=== PATIENT | female | born 1935 | race Caucasian/White ===

== ENCOUNTER → 2018-05-19 15:59 | Outpatient (REF) | payer MEDICARE, OTHER, SELFPAY | LOC: NCHCN 15:59 | PROVIDERS: PCP Internal Medicine; Visit Provider Nurse Practitioner Family | DX: R53.83 Other fatigue (principal); N94.89 Other specified conditions associated with female genital organs and menstrual cycle | CPT/HCPCS: 87077; 87086; 87186 ==

== ENCOUNTER 2018-06-16 11:51 | Outpatient (REF) | payer MEDICARE, SELFPAY ==
[2018-06-16 21:18] LABS: Iron 99 ug/dL (50-175); Total Iron Binding Capacity 283 ug/dL (250-450); Transferrin Sat 35 % (15-50)
[2018-06-16 21:34] LABS: ALT 34 U/L (12-78); AST 31 U/L (15-37); Albumin 3.8 g/dL (3.4-5.0); Alkaline Phosphatase 67 U/L (46-116); BUN 21 mg/dL (7-18); Bilirubin, Total 0.5 mg/dL (0.2-1.0); CREATININE 0.91 mg/dL (0.55-1.02); Calcium 8.6 mg/dL (8.5-10.1); Chloride 102 mmol/L (98-107); Estimated GFR 59.33 (mL/min/1.73m2); Ferritin 118 ng/mL (8-388); Glucose 104 mg/dL (70-100); Potassium 4.5 mmol/L (3.5-5.1); Sodium 138 mmol/L (136-145); Total Protein 7.3 g/dL (6.4-8.2)
[2018-06-16 21:48] LABS: Abs Immature Grans 0.01 k/cumm (0.0-0.09); Absolute Basophil Count 0.04 k/cumm (0.0-0.2); Absolute Eosinophil Count 0.15 k/cumm (0.0-0.7); Absolute Lymphocyte Count 1.75 k/cumm (1.2-3.4); Absolute Monocyte Count 0.96 k/cumm (0.11-0.7); Absolute Neutrophil Count 5.68 k/cumm (1.2-6.7); Basophils % 0.5; Eosinophils % 1.7; HCT 39.5 % (36.0-46.0); HGB 12.9 g/dL (12.0-15.5); Immature Grans % 0.1; Lymphocytes % 20.4; Mean Corp. HGB Concentration 32.7 g/dL (32.0-36.0); Monocytes % 11.2; Neutrophils % 66.1; Platelet Count 280 x1000/uL (130-400); RBC 4.16 m/cumm (4.00-5.20); RBC Distribution Width 13.5 % (11.7-14.6); White Blood Cell Count 8.59 k/cumm (4.4-10.8)
[2018-06-16 22:03] LABS: C-Reactive Protein 0.28 mg/dL (0.0-0.3)
[2018-06-16 22:51] LABS: ESR 27 MM/HR (0-30)
[2018-06-20 09:40] LABS: Rheumatoid Factor 9 IU/mL (<12.5)
[2018-06-20 09:48] LABS: Cyclic Citrullinated Peptide <2.5 U/mL (<5.0)
[2018-06-20 13:04] LABS: Lyme Ab w Rflx to Lyme Confirm Negative
[2018-06-21 11:50] LABS: ANA Interpretation Positive (NEGAT); ANA Titer Pattern SEE COMMENTS
== END 2018-06-16 12:11 ==
LOC: NCHCN 11:51
PROVIDERS: PCP Internal Medicine; Visit Provider Nurse Practitioner
DX: M25.50 Pain in unspecified joint (principal); R53.83 Other fatigue
CPT/HCPCS: 80053; 85652; 86200; 82728; 83540; 83550; 85025; 86038; 86140; 86431; 86618

== ENCOUNTER 2018-06-30 17:37 | Outpatient (REF) | payer MEDICARE, SELFPAY ==
[2018-06-30 21:01] LABS: TSH (W/Ref FT4) 0.15 uIU/mL (0.358-3.74)
[2018-06-30 21:40] LABS: FREE T4 1.25 ng/dL (0.76-1.46)
== END 2018-06-30 17:57 ==
LOC: NCHCN 17:37
PROVIDERS: PCP Internal Medicine; Visit Provider Nurse Practitioner Family
DX: E03.9 Hypothyroidism, unspecified (principal)
CPT/HCPCS: 84439; 84443

== ENCOUNTER 2018-07-28 00:35 | Outpatient (CLI) | payer MEDICARE, OTHER, SELFPAY ==
--- NOTE | 2018-07-28 14:30 | DI.MAMMO_ITS ---
SYMPTOMS/DIAGNOSIS: SCREENING, Z12.31 MAMMOGRAM: Mammograms were interpreted according to the usual protocol including computer analysis with CAD system, tomosynthesis and C view imaging. The breasts are of moderate density with fairly symmetrical distribution of fibroglandular tissue. No dominant mass or clumped microcalcification is identified in either breast. The current examination is compared with previous examinations including July 2017 and note is again made of well circumscribed retroareolar nodule of the right breast unchanged from previous studies. CONCLUSION: No specific evidence of malignancy at this time. Routine screening examinations are suggested at yearly intervals in this age group according to the ACS/ACR guidelines. Category I. Breast density Category B. MQSA ASSESSMENT OF FINDINGS: Negative. Category 1. Patient will receive a letter notifying them of these results. BI-RADS category B. There are scattered areas of fibroglandular density.
== END 2018-07-28 00:55 ==
PROVIDERS: PCP Internal Medicine; Visit Provider Nurse Practitioner Family
DX: Z12.31 Encounter for screening mammogram for malignant neoplasm of breast (principal)
CPT/HCPCS: 77063; 77067

== ENCOUNTER 2019-04-04 10:57 | Outpatient (REF) | payer MEDICARE, OTHER, SELFPAY | END 2019-04-04 11:17 | LOC: NCHCN 10:57 | PROVIDERS: PCP Internal Medicine; Visit Provider Nurse Practitioner Family | DX: R30.0 Dysuria (principal); N39.46 Mixed incontinence | CPT/HCPCS: 87077; 87086; 87186 ==

== ENCOUNTER 2019-05-05 11:08 | Outpatient (REF) | payer MEDICARE, OTHER, SELFPAY ==
[2019-05-05 12:12] LABS: Bilirubin Negative (Negative); Blood Trace-lysed (Negative); Clarity Clear (Clear); Glucose Negative (Negative); Ketones Trace mg/dL (Negative); Leukocyte Esterase Negative (Negative); Nitrite Negative (Negative); Specific Gravity 1.015 (1.005-1.025); Urobilinogen 0.2 EU/dL (Up TO 0.2); pH 5.5 (5-8)
[2019-05-05 12:26] LABS: Bacteria Few HPF (Negative); C & S Indicated? C&S Done As Ordered; Casts Negative LPF (Negative); Crystals Few Calcium Oxalate HPF (Negative); Epithelial Cells Moderate HPF (Negative); Mucus Moderate (Negative); RBC 0-2 (0-2)
== END 2019-05-05 11:28 ==
LOC: NCHCN 11:08
PROVIDERS: PCP Internal Medicine; Visit Provider Nurse Practitioner Family
DX: R31.9 Hematuria, unspecified (principal)
CPT/HCPCS: 81003; 81015; 87086

== ENCOUNTER 2019-05-23 11:51 | Emergency (ER) | payer MEDICARE, OTHER, SELFPAY ==
[2019-05-23] VITALS (22 sets, daily range): BP systolic 167–183; BP diastolic 63–139; PULSE 66–80; RESP 13–23; TEMP 36.7; O2SAT 94–98
--- NOTE | 2019-05-23 12:56 | DI.CT_ITS ---
SYMPTOMS/DIAGNOSIS: WEIGHT LOSS, CONSTIPATION, ? ACUTE PROCESS/MASS ABDOMINAL AND PELVIC CT: CT examination of the abdomen and pelvis was performed with a bolus infusion of 80 cc of Omnipaque 350. Images obtained through the lung bases are unremarkable. The liver, spleen and pancreas appear normal. Gallbladder has been surgically removed. No biliary dilatation seen. Abdominal aorta is of normal diameter and no major vascular abnormality is seen. No significant abdominal wall hernia seen. No significant abdominal or pelvic adenopathy. Adrenals and kidneys are unremarkable. No urinary tract calcification or obstruction. No evidence of bowel obstruction. Question mild wall thickening of portions of the colon, particularly the rectosigmoid; colitis not excluded, please correlate clinically. CONCLUSION: No evidence of acute intraabdominal process. Colitis not excluded, please correlate clinically.
[2019-05-23 13:00] LABS: Abs Immature Grans 0.04 k/cumm (0.0-0.09); Absolute Lymphocyte Count 1.15 k/cumm (1.2-3.4); Absolute Monocyte Count 0.78 k/cumm (0.11-0.7); Absolute Neutrophil Count 11.04 k/cumm (1.2-6.7); Basophils % 0.2; HCT 41.8 % (36.0-46.0); HGB 14.4 g/dL (12.0-15.5); Immature Grans % 0.3; Lymphocytes % 8.8; Mean Corp. HGB Concentration 34.4 g/dL (32.0-36.0); Mean Corpuscular Hemoglobin 31.5 pg (27.0-33.0); Mean Corpuscular Volume 91.5 fL (80-95); Mean Platelet Volume 8.9 fL (8.0-11.0); Neutrophils % 84.7; Platelet Count 384 x1000/uL (130-400); RBC 4.57 m/cumm (4.00-5.20); RBC Distribution Width 12.5 % (11.7-14.6); White Blood Cell Count 13.03 k/cumm (4.4-10.8)
[2019-05-23] MEDS: Normal Saline 250 ML IV (13:00)
[2019-05-23 13:04] LABS: Bilirubin Negative (Negative); Blood Small (Negative); Clarity Clear (Clear); Glucose Negative (Negative); Ketones 80 mg/dL (Negative); Leukocyte Esterase Negative (Negative); Nitrite Negative (Negative); Specific Gravity 1.025 (1.005-1.025); Urobilinogen 0.2 EU/dL (Up TO 0.2)
[2019-05-23 13:05] LABS: Absolute Basophil Count 0.03 k/cumm (0.0-0.2)
[2019-05-23 13:11] LABS: Prothrombin Time 9.5 sec (9.3-11.0)
[2019-05-23 13:12] LABS: Bacteria Rare HPF (Negative); C & S Indicated? No; Casts Negative LPF (Negative); Crystals Negative HPF (Negative); Epithelial Cells Few HPF (Negative); Mucus Trace (Negative); WBC 0-2 HPF (0-5)
--- NOTE | 2019-05-23 13:22 | DI.RAD_ITS ---
SYMPTOM/DIAGNOSIS: SOB PA AND LATERAL CHEST: The heart is not enlarged. There is a questionable nodular radiodensity projected over the left heart border which may represent nipple shadow. Repeat PA chest with nipple markers requested. There are changes of COPD and pulmonary scarring. No evidence of focal consolidation or pleural effusion. CONCLUSION: No evidence of acute process. Question left nipple nodule versus intrapulmonary nodule, repeat PA chest with nipple markers is requested.
[2019-05-23 13:28] LABS: ALT 25 U/L (12-78); AST 18 U/L (15-37); Albumin 4.4 g/dL (3.4-5.0); Alkaline Phosphatase 66 U/L (46-116); Anion Gap 10.9 mmol/L (3-11); BUN 18 mg/dL (7-18); Bilirubin, Direct 0.15 mg/dL (0.00-0.20); CO2 28.1 mmol/L (21.0-32.0); CREATININE 0.72 mg/dL (0.55-1.02); Calcium 9.2 mg/dL (8.5-10.1); Chloride 91 mmol/L (98-107); Glucose 126 mg/dL (70-100); Magnesium 2.1 mg/dL (1.8-2.4); NT-proBNP 510 pg/mL; Potassium 4.2 mmol/L (3.5-5.1); Sodium 130 mmol/L (136-145); Total Protein 8.6 g/dL (6.4-8.2)
--- NOTE | 2019-05-23 13:30 | DI.RAD_ITS ---
SYMPTOM/DIAGNOSIS: DROPPED BOTTLE ON FOOT, ? FX RIGHT ANKLE AND RIGHT FOOT: Three views of the ankle and three views of the foot were obtained. The ankle mortise is well maintained. There are mild degenerative changes of the joints of the foot and ankle. No acute fracture is seen.
[2019-05-23 13:33] LABS: Troponin I < 0.05 ng/mL (0.00-0.06)
--- NOTE | 2019-05-23 13:52 | DI.RAD_ITS ---
SYMPTOMS/DIAGNOSIS: LEFT LOWER LOBE DENSITY, PA VIEW WITH NIPPLE MARKERS PER DR. ALEXANDER'S REQUEST REPEAT PA CHEST WITH NIPPLE MARKERS: Repeat PA chest with nipple markers shows nipple marker corresponding to the area of nodularity identified on the initial PA chest film. No intrapulmonary nodules seen.
[2019-05-23 14:04] LABS: FREE T4 1.25 ng/dL (0.76-1.46)
--- NOTE | 2019-05-23 15:04 | W.ED.GENAD ---
Discharge Plan Disposition Patient Disposition: HOME Condition: Improving Discharge Details Chief Complaint: GenMedical Clinical Impression: Atypical chest pain, Chronic constipation, Colitis, Nausea, Dehydration Primary Care Provider: Ruddy He ED Provider: Wanda Radford Home Meds and New Rx's Prescriptions: New ondansetron HCl [Zofran] 4 mg tablet 4 mg PO Q6H PRN (Reason: nausea and vomiting) Qty: 7 RF: 0 Continued atorvastatin [Lipitor] 40 MG tablet 40 mg PO DAILY RF: 0 paroxetine HCl [Paxil] 20 MG tablet 20 mg PO DAILY RF: 0 esomeprazole magnesium [Nexium] 40 MG capsule,delayed release(DR/EC) 40 mg PO DAILY RF: 0 levothyroxine 112 MCG tablet 112 mcg PO DAILY RF: 0 Discharge Instructions Instructions: Chest Pain (ED), Constipation (ED), Dehydration (ED), Acute Nausea and Vomiting (ED) Additional Instructions: Drink plenty of fluids and get plenty of rest. Take the Zofran as needed and directed for any nausea or vomiting. Call your primary care doctor to schedule a follow-up appointment for reevaluation within the next week. Return immediately to the emergency department if you develop any worsening or new concerning symptoms. Discharge Data Discharge Date/Time-TO BE ENTERED AT DEPARTURE: 05/23/19 18:28 Discharge Physician: Wanda Radford Medical Decision Making 83-year-old female with a history of hypothyroidism, high cholesterol, depression, irritable bowel syndrome who presents after referred from the PCP office for multiple complaints including chest pain, shortness of breath, nausea, decreased appetite, constipation for the past few days. EKG notes a rate of 73, sinus with no acute ST ischemic changes. Abdomen is soft and nontender. She appears nontoxic. Differential diagnosis includes ACS, pneumonia, dehydration, electrolyte abnormality, acute abdominal abnormality. IV, fluids, labs ordered on arrival in addition to chest x-ray and CT abdomen and pelvis. Labs ordered on arrival which noted with blood cell count of 13, sodium 130, troponin negative. BNP 510. TSH 0.3 with normal free T4. Urinalysis notes ketones and small blood but negative for infection. Chest x-ray negative. CT abdomen and pelvis thickening of the recto sigmoid region of the bowel, likely consistent with colitis. Patient has a history of chronic constipation so suspect this is likely due to this. 1630 --Patient states she feels better with IV fluids. She is requesting additional IV fluids and still complaining of minimal nausea. Will give a dose of zofranl, 500 cc saline bolus and check a second troponin. She denies any current symptoms at this time. 1800 --patient able to eat and drink and denies any vomiting and states she feels good to go home. 2nd trop negative. She denies any chest pain at this time. We will send home with a prescription for Zofran. Discussed that her symptoms of nausea, pain and chronic constipation can be associated with her colitis at this time, but also chronically with her IBS. She is advised to follow-up with her primary care doctor and GI for reevaluation. She is encouraged to return here if she has any worsening or new concerning symptoms. Imaging Data Radiologic Study: Radiologist's impression: PA AND LATERAL CHEST: The heart is not enlarged. There is a questionable nodular radiodensity projected over the left heart border which may represent nipple shadow. Repeat PA chest with nipple markers requested. There are changes of COPD and pulmonary scarring. No evidence of focal consolidation or pleural effusion. CONCLUSION: No evidence of acute process. Question left nipple nodule versus intrapulmonary nodule, repeat PA chest with nipple markers is requested. RIGHT ANKLE AND RIGHT FOOT: Three views of the ankle and three views of the foot were obtained. The ankle mortise is well maintained. There are mild degenerative changes of the joints of the foot and ankle. No acute fracture is seen. ABDOMINAL AND PELVIC CT: CT examination of the abdomen and pelvis was performed with a bolus infusion of 80 cc of Omnipaque 350. Images obtained through the lung bases are unremarkable. The liver, spleen and pancreas appear normal. Gallbladder has been surgically removed. No biliary dilatation seen. Abdominal aorta is of normal diameter and no major vascular abnormality is seen. No significant abdominal wall hernia seen. No significant abdominal or pelvic adenopathy. Adrenals and kidneys are unremarkable. No urinary tract calcification or obstruction. No evidence of bowel obstruction. Question mild wall thickening of portions of the colon, particularly the rectosigmoid; colitis not excluded, please correlate clinically. CONCLUSION: No evidence of acute intraabdominal process. Colitis not excluded, please correlate clinically. Lab Data Lab results reviewed: Yes I reviewed the patient's lab results. ECG Data Attestation: I personally reviewed and interpreted this ECG (s) as follows: Interpretation: Rate of 73, sinus, no acute ST elevation or depression. MN 172. QRS 456. HPI General Mode of arrival: ambulatory. Date/Time Provider Initiated Documentation: 05/23/19 12:55. Limitations to Documentation: no limitations. Information obtained by: patient. HPI Narrative: Patient is a 83-year-old female with a history of GERD, IBS, chronic constipation, hypothyroidism who presents to the ED with multiple complaints. She saw her primary care doctor today for vomiting, fatigue, chest pain, shortness of breath and complaint of her chronic constipation. She states she has been short of breath for 2 days but worse since yesterday. She states she does not specifically have chest pain but states it feels more like tingling. She states she has been taking Rodriguez' milk of magnesia for her chronic constipation for years. Patient lives in [place] in the winter and comes to [place] for the summer. She was seen by Dr. He in the office today and referred to the ER for evaluation including possible lab work and imaging in addition to IV fluids for possible dehydration. Related Data Home Medications Medication Instructions Recorded Confirmed atorvastatin [Lipitor] 40 mg PO DAILY tab-cap 07/09/15 05/23/19 esomeprazole magnesium [Nexium] 40 mg PO DAILY tab-cap 07/09/15 05/23/19 levothyroxine 112 mcg PO DAILY tab-cap 07/09/15 05/23/19 paroxetine HCl [Paxil] 20 mg PO DAILY tab-cap 07/09/15 05/23/19 ondansetron HCl [Zofran] 4 mg PO Q6H PRN #7 tab 05/23/19 Previous Rx's Medication Instructions Recorded ondansetron HCl [Zofran] 4 mg PO Q6H PRN #7 tab 05/23/19 Allergies Allergy/AdvReac Type Severity Reaction Status Date / Time metronidazole [From Flagyl] Allergy Intermediate Rash Unverified 05/23/19 12:22 ciprofloxacin [From Cipro] AdvReac Intermediate Muscle/Tendon Unverified 05/23/19 12:22 aches ciprofloxacin HCl AdvReac Intermediate Muscle/Tendon Unverified 05/23/19 12:22 [From Cipro] aches General Stated Complaint: GenMedical ZULEYMA: 3 Review of Systems Review of Systems All systems reviewed & are unremarkable except as noted in HPI and below Constitutional Reports as per HPI, Denies chills, Reports fatigue and Denies fever(s) Eyes Denies blurry vision ENT Denies dizziness, Denies sore throat and Denies throat swelling Cardiovascular Reports chest pain and Reports dyspnea Respiratory Denies cough and Reports dyspnea Gastrointestinal Denies abdominal pain, Denies diarrhea and Reports vomiting Genitourinary Denies hematuria and Denies dysuria Musculoskeletal Denies back pain and Denies numbness Integumentary/Breasts Denies lesions and Denies rash Neurologic Denies dizziness, Denies focal weakness and Denies numbness Endocrine Reports fatigue Allergic/Immunologic Denies throat swelling [facility] Medical History (Updated 05/23/19 @ 20:39 by Wanda Radford DO) Cholecystectomy planned (Acute) Chronic constipation (Acute) Depression (Chronic) Fibromyalgia (Acute) GERD (gastroesophageal reflux disease) (Chronic) History of Alba's esophagus (Acute) Hypothyroidism (Chronic) IBS (irritable bowel syndrome) (Chronic) Osteoarthritis (Chronic) Social History Smoking/Tobacco Use Status: Former Tobacco Use Alcohol Intake: never Drug use: Never Substance use type: does not use Do you feel safe at home: Yes Exam Const General: cooperative, healthy appearing and no acute distress HENMT Head: normal to inspection Face and sinus: normal facial exam Eyes General: appearance normal, both eyes and all related structures Pupils: PERRL EOM: EOM intact bilaterally Neck Neck: normal visual inspection and No submandibular swelling Lymphatic: no lymphadenopathy noted Chest Chest: normal inspection of the chest and no tenderness Resp Effort & Inspection: normal respiratory effort and able to speak in complete sentences Auscultation: clear to auscultation bilaterally Cardio Rate: regular rate Rhythm: regular rhythm GI Inspection: normal to inspection Palpation: soft, not firm, not rigid and nontender Auscultation: normal bowel sounds Rectal Exam - female: visual inspection normal Skin General skin exam: no rashes or lesions noted Neuro General: alert, awake and oriented x3 Cognition: normal cognition Speech: speech normal Motor: muscle tone normal throughout Sensory Exam: no sensory deficits noted Extrem General: normal to inspection, full ROM, normal capillary refill, no calf tenderness bilaterally and no edema Psych Appearance: grossly normal Mental Status: mental status grossly normal Speech and Movement: speech and movement normal Affect: normal affect Course Vital Signs Temperature 98.1 F 05/23/19 12:18 Pulse 80 05/23/19 12:18 Respiratory Rate 16 05/23/19 12:18 Blood Pressure 170/85 H 05/23/19 12:18 Pulse Oximetry 98 05/23/19 12:18 Temperature 98.1 F 05/23/19 12:18 Temperature Source Skin 05/23/19 12:18 Pulse 80 05/23/19 12:18 Respiratory Rate 16 05/23/19 12:55 Respiratory Effort Non-Labored 05/23/19 12:55 Respiratory Depth Normal 05/23/19 12:55 Respiratory Pattern Normal 05/23/19 12:55 Blood Pressure 170/85 H 05/23/19 12:18 Pulse Oximetry 98 05/23/19 12:18 Oxygen Delivery Method Room Air 05/23/19 12:18 Oxygen Flow Rate 0 05/23/19 12:18 Pain Level 4 05/23/19 12:18 Comment 05/23/19 12:18 Lab/Test Results Lab/Test Results: Laboratory Tests Range/Units 05/23/19 05/23/19 05/23/19 01:25 12:50 12:50 WBC (4.4-10.8) k/cumm 13.03 H RBC (4.00-5.20) m/cumm 4.57 Hgb (12.0-15.5) g/dL 14.4 Hct (36.0-46.0) % 41.8 MCV (80-95) fL 91.5 MCH (27.0-33.0) pg 31.5 MCHC (32.0-36.0) g/dL 34.4 RDW (11.7-14.6) % 12.5 Plt Count (130-400) x1000/uL 384 MPV (8.0-11.0) fL 8.9 Immature Gran % 0.3 Neutrophils % 84.7 Lymphocytes % 8.8 Monocytes % 6.0 Eosinophils % 0.0 Basophils % 0.2 Absolute Neutrophils (1.2-6.7) k/cumm 11.04 H Absolute Lymphocytes (1.2-3.4) k/cumm 1.15 L Absolute Monocytes (0.11-0.7) k/cumm 0.78 H Absolute Eosinophils (0.0-0.7) k/cumm 0.00 Absolute Basophils (0.0-0.2) k/cumm 0.03 PT (9.3-11.0) sec INR (0.9-1.1) Sodium (136-145) mmol/L 130 L Potassium (3.5-5.1) mmol/L 4.2 Chloride (98-107) mmol/L 91 L Carbon Dioxide (21.0-32.0) mmol/L 28.1 Anion Gap (3-11) mmol/L 10.9 BUN (7-18) mg/dL 18 Creatinine (0.55-1.02) mg/dL 0.72 Estimated GFR/1.73 m2 (mL/min/1.73m2) >= 60.00 Glucose (70-100) mg/dL 126 H Calcium (8.5-10.1) mg/dL 9.2 Magnesium (1.8-2.4) mg/dL 2.1 Total Bilirubin (0.2-1.0) mg/dL 1.0 Conjugated Bilirubin (0.00-0.20) mg/dL 0.15 AST (15-37) U/L 18 ALT (12-78) U/L 25 Alkaline Phosphatase (46-116) U/L 66 Troponin I (0.00-0.06) ng/mL < 0.05 NT-Pro-B Natriuret Pep ( - 299) pg/mL 510 H Total Protein (6.4-8.2) g/dL 8.6 H Albumin (3.4-5.0) g/dL 4.4 TSH (0.36-3.74) uIU/mL Free T4 (0.76-1.46) ng/dL Urine Color (Yellow) Yellow Urine Clarity (Clear) Clear Urine pH (5-8) 6.0 Ur Specific [place] (1.005-1.025) 1.025 Urine Protein (Negative) mg/dL 100 H Urine Ketones (Negative) mg/dL 80 H Urine Blood (Negative) Small H Urine Nitrite (Negative) Negative Urine Bilirubin (Negative) Negative Urine Urobilinogen (Up TO 0.2) EU/dL 0.2 Ur Leukocyte Esterase (Negative) Negative Urine RBC (0-2) 5-10 H Urine WBC (0-5) HPF 0-2 Ur Epithelial Cells (Negative) HPF Few Urine Crystals (Negative) HPF Negative Urine Bacteria (Negative) HPF Rare Urine Casts (Negative) LPF Negative Urine Mucus (Negative) Trace Ur Culture Indicated? No Urine Glucose (Negative) mg/dL Negative Range/Units 05/23/19 05/23/19 12:50 12:50 WBC (4.4-10.8) k/cumm RBC (4.00-5.20) m/cumm Hgb (12.0-15.5) g/dL Hct (36.0-46.0) % MCV (80-95) fL MCH (27.0-33.0) pg MCHC (32.0-36.0) g/dL RDW (11.7-14.6) % Plt Count (130-400) x1000/uL MPV (8.0-11.0) fL Immature Gran % Neutrophils % Lymphocytes % Monocytes % Eosinophils % Basophils % Absolute Neutrophils (1.2-6.7) k/cumm Absolute Lymphocytes (1.2-3.4) k/cumm Absolute Monocytes (0.11-0.7) k/cumm Absolute Eosinophils (0.0-0.7) k/cumm Absolute Basophils (0.0-0.2) k/cumm PT (9.3-11.0) sec 9.5 INR (0.9-1.1) 1.0 Sodium (136-145) mmol/L Potassium (3.5-5.1) mmol/L Chloride (98-107) mmol/L Carbon Dioxide (21.0-32.0) mmol/L Anion Gap (3-11) mmol/L BUN (7-18) mg/dL Creatinine (0.55-1.02) mg/dL Estimated GFR/1.73 m2 (mL/min/1.73m2) Glucose (70-100) mg/dL Calcium (8.5-10.1) mg/dL Magnesium (1.8-2.4) mg/dL Total Bilirubin (0.2-1.0) mg/dL Conjugated Bilirubin (0.00-0.20) mg/dL AST (15-37) U/L ALT (12-78) U/L Alkaline Phosphatase (46-116) U/L Troponin I (0.00-0.06) ng/mL NT-Pro-B Natriuret Pep ( - 299) pg/mL Total Protein (6.4-8.2) g/dL Albumin (3.4-5.0) g/dL TSH (0.36-3.74) uIU/mL 0.30 L Free T4 (0.76-1.46) ng/dL 1.25 Urine Color (Yellow) Urine Clarity (Clear) Urine pH (5-8) Ur Specific [place] (1.005-1.025) Urine Protein (Negative) mg/dL Urine Ketones (Negative) mg/dL Urine Blood (Negative) Urine Nitrite (Negative) Urine Bilirubin (Negative) Urine Urobilinogen (Up TO 0.2) EU/dL Ur Leukocyte Esterase (Negative) Urine RBC (0-2) Urine WBC (0-5) HPF Ur Epithelial Cells (Negative) HPF Urine Crystals (Negative) HPF Urine Bacteria (Negative) HPF Urine Casts (Negative) LPF Urine Mucus (Negative) Ur Culture Indicated? Urine Glucose (Negative) mg/dL
[2019-05-23] MEDS: Normal Saline 500 ML IV (16:15)
[2019-05-23] MEDS: Ondansetron 4 MG/2 ML VIAL IVP (16:18)
[2019-05-23 16:59] LABS: Troponin I < 0.05 ng/mL (0.00-0.06)
[2019-05-23 20:38] LABS: Lipase 87 U/L (73-393)
== END 2019-05-23 18:28 | disposition home or self-care (01) ==
PROVIDERS: Emergency Provider Physician Assistant; PCP Internal Medicine
DX: R07.89 Other chest pain (principal); R11.0 Nausea; K52.9 Noninfective gastroenteritis and colitis, unspecified; E86.0 Dehydration; K59.09 Other constipation
CPT/HCPCS: 36415; 80053; 80076; 83690; 93005; 96361; 96374; 99285; 71045; 71046; 73610; 73630; 74177; 81003; 81015; 83735; 83880; 84439; 84443; 84484; 85025; 85610; 93010; J2405

== ENCOUNTER → 2019-05-25 12:58 | Outpatient (BNVA) | payer MEDICARE, OTHER, SELFPAY | PROVIDERS: PCP Internal Medicine; Visit Provider Nurse Practitioner Gerontology | DX: N39.46 Mixed incontinence (principal); R31.29 Other microscopic hematuria; Z87.440 Personal history of urinary (tract) infections | CPT/HCPCS: 51798; 99204; 99215 ==

== ENCOUNTER 2019-06-02 15:28 | Outpatient (REF) | payer MEDICARE, OTHER, SELFPAY | END 2019-06-02 15:48 | LOC: NCHCN 15:28 | PROVIDERS: PCP Internal Medicine; Visit Provider Nurse Practitioner Family | DX: R73.03 Prediabetes (principal); E03.9 Hypothyroidism, unspecified; R11.2 Nausea with vomiting, unspecified | CPT/HCPCS: 83036 ==

== ENCOUNTER 2019-06-05 09:56 | Emergency (ER) | payer MEDICARE, OTHER, SELFPAY ==
[2019-06-05] VITALS (46 sets, daily range): BP systolic 124–155; BP diastolic 46–133; PULSE 80–102; RESP 14–31; TEMP 37.4–37.7; O2SAT 91–96
--- NOTE | 2019-06-05 10:32 | ED.GENADUL_ITS ---
Discharge Plan Disposition Patient Disposition: HOME Condition: Stable Discharge Details Chief Complaint: Nausea/Vomit/Diar Clinical Impression: Vomiting, Abdominal pain, Chronic constipation Primary Care Provider: Ruddy He ED Provider: Erica Cantrell Home Meds and New Rx's Prescriptions: Continued acetaminophen [Tylenol Extra Strength] 500 mg tablet 1,000 mg PO TID PRNRF: 0 Myrbetriq 25 mg tablet extended release 24 hr 25 mg PO DAILY Qty: 28 RF: 0 atorvastatin [Lipitor] 40 MG tablet 40 mg PO DAILY RF: 0 paroxetine HCl [Paxil] 20 MG tablet 20 mg PO DAILY RF: 0 esomeprazole magnesium [Nexium] 40 MG capsule,delayed release(DR/EC) 40 mg PO DAILY RF: 0 levothyroxine 112 MCG tablet 100 mcg PO DAILY RF: 0 ondansetron HCl [Zofran] 4 mg tablet 4 mg PO Q6H PRN (Reason: nausea and vomiting) Qty: 7 RF: 0 No Action sennosides [senna] 8.6 mg Tablet 8.6 mg PO QHS RF: 0 Discharge Instructions Instructions: Constipation (ED), Acute Nausea and Vomiting (ED), Abdominal Pain (ED) Additional Instructions: Please return immediately to the emergency department if you develop any new or worsening symptoms, if your symptoms do not improve as expected, or if you become otherwise concerned. It is extremely important that you call as soon as possible to make an appointment to be seen in follow-up for this visit by you primary care doctor, and also by your network diagnostic support specialist. You may continue to take Zofran 3 times a day for nausea as prescribed. Please continue to drink plenty of fluids. Referrals: Ruddy He MD [Primary Care Provider] - Discharge Data Discharge Date/Time-TO BE ENTERED AT DEPARTURE: 06/05/19 15:15 Medical Decision Making Erika Ferreira is an 83-year-old woman with history of GERD, hypothyroidism, irritable bowel syndrome who presented to the emergency department with vomiting and abdominal pain. On exam patient is well and nontoxic appearing. She has mild generalized abdominal tenderness, worse in the left lower quadrant. Concern for colitis, diverticulitis, gastritis, pancreatitis, IBS, doubt bowel obstruction, doubt ACS. Exam/history is not consistent with sepsis, pulmonary embolism, mesenteric ischemia, aortic etiology, acute intracranial etiology. Plan for EKG, screening labs, UA, IV fluid hydration, Zofran, CT abdomen/pelvis. Will monitor and reassess. CT shows possible enteritis, labs reviewed and nondiagnostic. Pt reports feeling very well, symptoms improved. Patient requesting discharged home. She has been taking p.o. in the emergency department without issue. Given that patient feels very well and is eating and drinking, no further intervention indicated at this time. I had a lengthy discussion with the patient regarding return to emergency department precautions/red flags, home care including bowel regimen, and im portance of outpatient follow-up with her PCP and network diagnostic support specialist. Patient verbalized understanding of the plan was amenable. Patient was discharged home with clear plan for outpatient follow-up. All questions were answered. Medical Records Medical records reviewed: Yes I reviewed the patient's medical records. Imaging Data Radiologic Study: Attestation: I personally reviewed and interpreted this imaging study as follows: Radiologist's impression: CT OF THE ABDOMEN AND PELVIS: Comparison is made with [id number]. Images were performed from the lung bases through the ischial tuberosities after IV and without oral contrast. The stomach contains fluid. The ascending colon also shows fluid. There is mild fluid distention of loops of small bowel which could represent enteritis. There is formed stool in the rectosigmoid and a moderate quantity of stool in the rest of the colon. The appendix appears normal. There is no free air, free fluid or abscess. No pneumatosis is seen. The lung bases are clear. The patient is status post cholecystectomy. The liver, spleen, adrenals, pancreas and kidneys are unremarkable. The patient is status post hysterectomy. The bladder is unremarkable. The aorta shows calcification and is normal in diameter. IMPRESSION: Mild small bowel distention with fluid could indicate enteritis. There is no evidence of obstruction. Lab Data Lab results reviewed: Yes I reviewed the patient's lab results. Laboratory Tests Range/Units 06/05/19 06/05/19 06/05/19 10:10 10:10 11:24 WBC (4.4-10.8) k/cumm 5.41 RBC (4.00-5.20) m/cumm 4.31 Hgb (12.0-15.5) g/dL 13.9 Hct (36.0-46.0) % 41.0 MCV (80-95) fL 95.1 H MCH (27.0-33.0) pg 32.3 MCHC (32.0-36.0) g/dL 33.9 RDW (11.7-14.6) % 13.2 Plt Count (130-400) x1000/uL 300 MPV (8.0-11.0) fL 9.0 Immature Gran % 0.0 Neutrophils % 85.7 Lymphocytes % 3.3 Monocytes % 10.4 Eosinophils % 0.4 Basophils % 0.2 Absolute Neutrophils (1.2-6.7) k/cumm 4.64 Absolute Lymphocytes (1.2-3.4) k/cumm 0.18 L Absolute Monocytes (0.11-0.7) k/cumm 0.56 Absolute Eosinophils (0.0-0.7) k/cumm 0.02 Absolute Basophils (0.0-0.2) k/cumm 0.01 Sodium (136-145) mmol/L 141 Potassium (3.5-5.1) mmol/L 3.5 Chloride (98-107) mmol/L 103 Carbon Dioxide (21.0-32.0) mmol/L 27.8 Anion Gap (3-11) mmol/L 10.2 BUN (7-18) mg/dL 26 H Creatinine (0.55-1.02) mg/dL 0.81 Estimated GFR/1.73 m2 (mL/min/1.73m2) >= 60.00 Glucose (70-100) mg/dL 144 H Calcium (8.5-10.1) mg/dL 7.9 L Total Bilirubin (0.2-1.0) mg/dL 0.7 AST (15-37) U/L 22 ALT (14-59) U/L 35 Alkaline Phosphatase (46-116) U/L 50 Troponin I (0.00-0.06) ng/mL < 0.05 Total Protein (6.4-8.2) g/dL 7.1 Albumin (3.4-5.0) g/dL 3.6 Lipase (73-393) U/L 633 H Urine Color (Yellow) Yellow Urine Clarity (Clear) Clear Urine pH (5-8) 5.5 Ur Specific Premier (1.005-1.025) 1.020 Urine Protein (Negative) mg/dL Trace H Urine Ketones (Negative) mg/dL Negative Urine Blood (Negative) Negative Urine Nitrite (Negative) Negative Urine Bilirubin (Negative) Negative Urine Urobilinogen (Up TO 0.2) EU/dL 0.2 Ur Leukocyte Esterase (Negative) Negative Urine RBC (0-2) Negative Urine WBC (0-5) HPF 0-2 Ur Epithelial Cells (Negative) HPF Moderate Urine Crystals (Negative) HPF Negative Urine Bacteria (Negative) HPF Negative Urine Casts (Negative) LPF Negative Urine Mucus (Negative) Trace Ur Culture Indicated? No Urine Glucose (Negative) mg/dL Negative ECG Data Attestation: I personally reviewed and interpreted this ECG (s) as follows: Interpretation: EKG shows sinus rhythm at 79, normal axis, T wave flattening present on prior 05/23/2019, no acute ischemic changes, nondiagnostic EKG HPI General Mode of arrival: ambulatory . Date/Time Provider Initiated Documentation: 06/05/19 10:30 . Limitations to Documentation: no limitations . Information obtained by: patient, RN notes reviewed and old records reviewed . HPI Narrative: Erika Ferreira is an 83 y/o woman with history of recurrent UTI, GERD, irritable bowel syndrome, chronic constipation presenting to the emergency department with abdominal pain and vomiting. Per patient and record review, patient was seen here 05/23 for similar symptoms, although pain was more located in her chest at that time. Patient underwent CT of the abdomen/pelvis showing somewhat thickened portions of the colon. Patient had troponin x2-. Patient was discharged home. She reports that after being discharged, she has been feeling very well and in her usual state of health. Patient reports that she has chronic constipation at baseline, and has had alternating constipation with diarrhea, which is not particularly unusual for her. Patient reports that she has been eating and drinking as usual. She states that she woke up this morning at 4 AM with nausea and began vomiting. She states that she has vomited several times this morning, and has vomited once in the emergency department. She reports mild generalized abdominal pain, and states that she feels as if she might have another UTI. Patient reports that otherwise she feels well. No fevers, no other pain, no cough, no shortness of breath, no numbness, no focal weakness, no rash. Related Data Home Medications Medication Instructions Recorded Confirmed atorvastatin [Lipitor] 40 mg PO DAILY tab-cap 07/09/15 06/26/19 esomeprazole magnesium [Nexium] 40 mg PO DAILY tab-cap 07/09/15 06/26/19 levothyroxine 100 mcg PO DAILY tab-cap 07/09/15 06/26/19 paroxetine HCl [Paxil] 20 mg PO DAILY tab-cap 07/09/15 06/26/19 ondansetron HCl [Zofran] 4 mg PO Q6H PRN #7 tab 05/23/19 06/26/19 acetaminophen 500 mg tablet 1,000 mg PO TID PRN tab 05/25/19 06/26/19 mirabegron 25 mg tablet,extended 25 mg PO DAILY #28 tab 05/25/19 06/26/19 release 24 hr sennosides [senna] 8.6 mg PO QHS 06/22/19 06/26/19 Previous Rx's Medication Instructions Recorded ondansetron HCl [Zofran] 4 mg PO Q6H PRN #7 tab 05/23/19 mirabegron 25 mg tablet,extended 25 mg PO DAILY #28 tab 05/25/19 release 24 hr Allergies Allergy/AdvReac Type Severity Reaction Status Date / Time metronidazole [From Flagyl] Allergy Intermediate Rash Unverified 06/05/19 10:15 nitrofurantoin Allergy Verified 06/05/19 10:15 [From Macrobid] ciprofloxacin [From Cipro] AdvReac Intermediate Muscle/Tendon Unverified 06/05/19 10:15 aches ciprofloxacin HCl AdvReac Intermediate Muscle/Tendon Unverified 06/05/19 10:15 [From Cipro] aches General Stated Complaint: Nausea/Vomit/Diar ZULEYMA: 3 Review of Systems Review of Systems Constitutional: denies fevers Eyes: denies eye pain ENT: denies facial pain, dental pain, sore throat Cardiovascular: denies chest pain, edema Respiratory: denies SOB, cough GI: Reports abdominal pain, vomiting, diarrhea, constipation : denies flank pain, dysuria, urinary frequency MSK: denies back pain, neck pain, arthralgias, myalgias Skin: denies rash Neuro: denies headaches, numbness, weakness [facility] Medical History Cholecystectomy planned (Acute) Chronic constipation (Acute) Depression (Chronic) Fibromyalgia (Acute) GERD (gastroesophageal reflux disease) (Chronic) History of Alba's esophagus (Acute) Hypothyroidism (Chronic) IBS (irritable bowel syndrome) (Chronic) Osteoarthritis (Chronic) Family History (Updated 06/21/19 @ 13:30 by Maddie Upton RN) Other Cancer Social History Smoking/Tobacco Use Status: Former Tobacco Use Alcohol Intake: never Drug use: Never Substance use type: does not use Do you feel safe at home: Yes Do you feel safe in your relationship?: Yes Exam Narrative Exam Narrative: Constitutional: well and [id number], pleasant, conversing normally HENT: head atraumatic/normocephalic/normal inspection, mucous membranes moist Eyes: conjunctiva normal, sclera normal, pupils 3mm b/l Neck: no stridor, normal ROM, trachea midline Chest: normal inspection Resp: normal work of breathing, LCTAB Cardio: normal rate, normal rhythm GI: abdomen soft, mild generalized abdominal pain without rebound or guarding, worse in the left lower quadrant, non-distended Back: normal inspection, no rash Skin: warm, dry, normal color, no rash Neuro: alert, not altered, grossly non-focal, normal tone Ext: Moving all extremities equally, no posterior calf tenderness to palpation Psych: normal mood, normal affect, normal behavior Course Vital Signs Temperature 37.5 C 06/05/19 10:08 Pulse 80 06/05/19 10:08 Respiratory Rate 19 06/05/19 10:08 Blood Pressure 155/66 H 06/05/19 10:08 Pulse Oximetry 95 06/05/19 10:08 Temperature 37.5 C 06/05/19 10:08 Temperature Source Oral 06/05/19 10:08 Pulse 80 06/05/19 10:08 Respiratory Rate 19 06/05/19 10:08 Respiratory Effort Non-Labored 06/05/19 10:13 Blood Pressure 155/66 H 06/05/19 10:08 Blood Pressure Position Supine 06/05/19 10:08 Pulse Oximetry 95 06/05/19 10:08 Oxygen Delivery Method Room Air 06/05/19 10:08 Oxygen Flow Rate 0 06/05/19 10:08 Pain Level 3 06/05/19 10:08
[2019-06-05 10:50] LABS: Absolute Basophil Count 0.01 k/cumm (0.0-0.2); Absolute Eosinophil Count 0.02 k/cumm (0.0-0.7); Absolute Lymphocyte Count 0.18 k/cumm (1.2-3.4); Absolute Monocyte Count 0.56 k/cumm (0.11-0.7); Absolute Neutrophil Count 4.64 k/cumm (1.2-6.7); Basophils % 0.2; Eosinophils % 0.4; HGB 13.9 g/dL (12.0-15.5); Lymphocytes % 3.3; Mean Corp. HGB Concentration 33.9 g/dL (32.0-36.0); Mean Corpuscular Hemoglobin 32.3 pg (27.0-33.0); Mean Corpuscular Volume 95.1 fL (80-95); Monocytes % 10.4; Neutrophils % 85.7; Platelet Count 300 x1000/uL (130-400); RBC 4.31 m/cumm (4.00-5.20); RBC Distribution Width 13.2 % (11.7-14.6); White Blood Cell Count 5.41 k/cumm (4.4-10.8)
[2019-06-05 11:06] LABS: ALT 35 U/L (14-59); AST 22 U/L (15-37); Albumin 3.6 g/dL (3.4-5.0); Alkaline Phosphatase 50 U/L (46-116); Anion Gap 10.2 mmol/L (3-11); BUN 26 mg/dL (7-18); Bilirubin, Total 0.7 mg/dL (0.2-1.0); CO2 27.8 mmol/L (21.0-32.0); CREATININE 0.81 mg/dL (0.55-1.02); Calcium 7.9 mg/dL (8.5-10.1); Chloride 103 mmol/L (98-107); Glucose 144 mg/dL (70-100); Lipase 633 U/L (73-393); Potassium 3.5 mmol/L (3.5-5.1); Sodium 141 mmol/L (136-145); Total Protein 7.1 g/dL (6.4-8.2)
[2019-06-05 11:07] LABS: Troponin I < 0.05 ng/mL (0.00-0.06)
[2019-06-05 11:33] LABS: Bilirubin Negative (Negative); Blood Negative (Negative); Clarity Clear (Clear); Glucose Negative (Negative); Ketones Negative (Negative); Leukocyte Esterase Negative (Negative); Nitrite Negative (Negative); Urobilinogen 0.2 EU/dL (Up TO 0.2); pH 5.5 (5-8)
[2019-06-05] MEDS: Normal Saline 500 ML IV (11:37)
[2019-06-05] MEDS: Ondansetron 4 MG/2 ML VIAL IVP (11:40)
[2019-06-05 11:44] LABS: Bacteria Negative HPF (Negative); C & S Indicated? No; Casts Negative LPF (Negative); Crystals Negative HPF (Negative); Epithelial Cells Moderate HPF (Negative); Mucus Trace (Negative); RBC Negative (0-2); WBC 0-2 HPF (0-5)
--- NOTE | 2019-06-05 13:05 | DI.CT_ITS ---
SYMPTOMS/DIAGNOSIS: ABD PAIN, CONSTIPATION, DIARRHEA CT OF THE ABDOMEN AND PELVIS: Comparison is made with [id number]. Images were performed from the lung bases through the ischial tuberosities after IV and without oral contrast. The stomach contains fluid. The ascending colon also shows fluid. There is mild fluid distention of loops of small bowel which could represent enteritis. There is formed stool in the rectosigmoid and a moderate quantity of stool in the rest of the colon. The appendix appears normal. There is no free air, free fluid or abscess. No pneumatosis is seen. The lung bases are clear. The patient is status post cholecystectomy. The liver, spleen, adrenals, pancreas and kidneys are unremarkable. The patient is status post hysterectomy. The bladder is unremarkable. The aorta shows calcification and is normal in diameter. IMPRESSION: Mild small bowel distention with fluid could indicate enteritis. There is no evidence of obstruction.
--- NOTE | 2019-06-05 13:31 | DI.VRAD_ITS ---
EXAM: CT Abdomen and Pelvis With Contrast EXAM DATE/TIME: 06/05/2019 11:23 AM CLINICAL HISTORY: 83 years old, female; Abdominal pain; Tenderness; Left lower quadrant (llq); Patient HX: Abdomen pain, constipation/diarrhea. TECHNIQUE: Imaging protocol: Computed tomography of the abdomen and pelvis with intravenous contrast. Radiation optimization: All CT scans at this facility use at least one of these dose optimization techniques: automated exposure control; mA and/or kV adjustment per patient size (includes targeted exams where dose is matched to clinical indication); or iterative reconstruction. Contrast material: OMNI-PAQUE 350; Contrast volume: 87 ml; Contrast route: IV; COMPARISON: CT ABDOMEN PELVIS W 05/23/2019 3:18 PM FINDINGS: Prior cholecystectomy. Prior hysterectomy. Normal appearing solid organs. No intestinal obstruction. No obstructive uropathy. No free fluid. No free air. No inflammatory changes. IMPRESSION: No specific etiology identified for the patient's symptoms. Dictated and Authenticated by: Orlando Harris MD. Ordering:DANIELLA Maldonado MD
[2019-06-05] MEDS: Acetaminophen 500 MG TAB 1000 MG PO (15:01)
== END 2019-06-05 15:15 | disposition home or self-care (01) ==
PROVIDERS: Emergency Provider Student in an Organized Health Care Education/Training Program; PCP Internal Medicine
DX: R10.84 Generalized abdominal pain (principal); R11.2 Nausea with vomiting, unspecified; K58.2 Mixed irritable bowel syndrome; K59.09 Other constipation
CPT/HCPCS: 36415; 80053; 83690; 93005; 96374; 99285; 74177; 81003; 81015; 84484; 85025; 93010; J2405

== ENCOUNTER 2019-06-26 06:30 | Day surgery (SDC) | payer MEDICARE, OTHER, SELFPAY ==
[2019-06-26 06:36] VITALS: BP 141/74; PULSE 68; RESP 18; TEMP 36.8; O2SAT 97
--- NOTE | 2019-06-26 07:08 | DI.RAD_ITS ---
EXAM: XR RETROGRADE IN OR CLINICAL HISTORY: MICROSCOPIC HERMATURIA. TECHNIQUE: 2D and realtime digital imaging was performed. FINDINGS: A retrograde examination was carried out by Dr. Rojas. Contrast material is noted in the proximal ure ter bilaterally. There is a duplex left kidney. The visualized portions of the right collecting syste m appear unremarkable. Please see Dr. Rojas's procedure report for further information.
[2019-06-26] MEDS: Lactated Ringers 1,000 ML 80 ML IV (07:09)
[2019-06-26] MEDS: Sulfameth/Trimeth DS TAB 1 TAB PO (07:09)
[2019-06-26] MEDS: Lidocaine 2% Jelly 6 ML SYR (07:55)
[2019-06-26] MEDS: Omnipaque 300 MG/ML 50 ML BTL (08:05)
--- NOTE | 2019-06-26 08:08 | W.PM.DSUDISC ---
Discharge Plan Disposition Patient Disposition: HOME Condition: Stable Discharge Details Reason For Visit: Microscopic hematuria Attending Provider: Ramírez Rojas Primary Care Provider: Ruddy He Home Meds and New Rx's Prescriptions: No Action acetaminophen [Tylenol Extra Strength] 500 mg tablet 1,000 mg PO TID PRNRF: 0 Myrbetriq 25 mg tablet extended release 24 hr 25 mg PO DAILY Qty: 28 RF: 0 atorvastatin [Lipitor] 40 MG tablet 40 mg PO DAILY RF: 0 paroxetine HCl [Paxil] 20 MG tablet 20 mg PO DAILY RF: 0 esomeprazole magnesium [Nexium] 40 MG capsule,delayed release(DR/EC) 40 mg PO DAILY RF: 0 levothyroxine 112 MCG tablet 100 mcg PO DAILY RF: 0 sennosides [senna] 8.6 mg Tablet 8.6 mg PO QHS RF: 0 ondansetron HCl [Zofran] 4 mg tablet 4 mg PO Q6H PRN (Reason: nausea and vomiting) Qty: 7 RF: 0 Discharge Instructions Additional Instructions: Followup yearly for urinalysis Followup 1 to 2 months to discuss options for incontinence and recurrent UTI Activity:: Activity as Tolerated Shower/Bathe:: 24 hours Diet:: As Tolerated Discharge Orders Discharge Orders: Discharge Order (Routine); Ordered 06/26/19 Ordered By: Ramírez Rojas DS: Diagnosis Discharge Diagnosis (1) Microscopic hematuria: Status: Acute
[2019-06-26 08:55] VITALS: BP 148/83; PULSE 62; RESP 16; TEMP 36.8; O2SAT 98
--- NOTE | 2019-06-26 14:33 | ROE_ITS ---
DATE OF PROCEDURE: June 26, 2019 PREOPERATIVE DIAGNOSIS: Microscopic hematuria. POSTOPERATIVE DIAGNOSIS: Microscopic hematuria. PROCEDURE: Cystoscopy with bilateral retrograde pyelograms. SURGEON: Ramírez Rojas M.D. ANESTHESIA: General with local. COMPLICATIONS: None. HISTORY: This is an 83-year-old woman who has a finding of microscopic hematuria. She has also had recurrent UTI's and urinary incontinence. She has been evaluated with a CT scan, which showed no sto gardenia and no renal mass. Her ureters and bladder have not been evaluated. She presents today for a cy stoscopy with retrograde pyelogram. OPERATIVE REPORT: The patient was brought to the Operating Room on 06/26/19. She was given room air general anesthetic and placed in the dorsal lithotomy position. Her genitalia was prepped and draped . 2% Xylocaine jelly was instilled into the urethra to act as a local anesthetic. A 22 [place] rigid cystoscope was passed through the urethra into the bladder. The bladder was inspec rosemary using both a 30 and a 70-degree lens. No papillary or nodular bladder lesions were seen. The base of the bladder was elevated somewhat aft er a previous pelvic floor repair. Both ureteral orifices were identified. Each orifice was cannulated with a 6 [place] access catheter. A retrograde film was obtained by injecting Omnipaque through the access catheter under fluoroscopi c guidance. Both ureters and collecting systems appeared normal. There was a bifid collecting system bilaterally with both ureteral segments joining very proximally in the course of the ureter. Both sides drained promptly on a 5-minute drainage film. The bladder findings were confirmed on re-inspection of the bladder using a 70-degree lens. The blad luciana was emptied and the cystoscope was withdrawn. Based on today's examination there is no significant uropathology identified. The current recommenda tion is a yearly urinalysis and a repeat workup in 3 to 5 years if the hematuria persists. The patient tolerated this procedure well with no complications. cc: Ruddy He M.D.
== END 2019-06-26 09:10 | disposition home or self-care (01) ==
PROVIDERS: PCP Internal Medicine; Visit Provider Urology
PROC: (CPT 74450; principal; 2019-06-26 07:30)
DX: R31.29 Other microscopic hematuria (principal); Z87.440 Personal history of urinary (tract) infections; Q63.8 Other specified congenital malformations of kidney; N39.46 Mixed incontinence; K21.9 Gastro-esophageal reflux disease without esophagitis
CPT/HCPCS: 52005; 74420; J1100; J1885; J2405; Q9967

== ENCOUNTER → 2019-07-13 10:52 | Outpatient (BNVA) | payer MEDICARE, OTHER, SELFPAY | PROVIDERS: PCP Internal Medicine; Referring Provider Internal Medicine; Visit Provider Urology | DX: R31.29 Other microscopic hematuria (principal); N39.46 Mixed incontinence; Z87.440 Personal history of urinary (tract) infections | CPT/HCPCS: 81003; 99213 ==

== ENCOUNTER 2019-07-14 11:03 | Outpatient (REF) | payer MEDICARE, OTHER, SELFPAY ==
[2019-07-14 21:32] LABS: TSH 5.37 uIU/mL (0.36-3.74)
[2019-07-17 09:10] LABS: FREE T4 0.94 ng/dL (0.76-1.46)
== END 2019-07-14 11:23 ==
LOC: NCHCN 11:03
PROVIDERS: PCP Internal Medicine; Visit Provider Internal Medicine
DX: E03.9 Hypothyroidism, unspecified (principal)
CPT/HCPCS: 84439; 84443

== ENCOUNTER → 2020-04-22 13:56 | Outpatient (BNVA) | payer MEDICARE, OTHER, SELFPAY | PROVIDERS: PCP Internal Medicine; Referring Provider Internal Medicine; Visit Provider Nurse Practitioner Gerontology | DX: R31.29 Other microscopic hematuria (principal); N39.46 Mixed incontinence; N39.0 Urinary tract infection, site not specified | CPT/HCPCS: 81003; 99213 ==

== ENCOUNTER 2020-04-22 16:42 | Outpatient (REF) | payer MEDICARE, OTHER, SELFPAY ==
[2020-04-22 18:14] LABS: Bilirubin Negative (Negative); Blood Negative (Negative); Clarity Clear (Clear); Glucose Negative (Negative); Ketones Trace mg/dL (Negative); Leukocyte Esterase Negative (Negative); Nitrite Negative (Negative); Urobilinogen 0.2 EU/dL (Up TO 0.2)
== END 2020-04-22 17:02 ==
LOC: LBN 16:42
PROVIDERS: PCP Internal Medicine; Visit Provider Nurse Practitioner Gerontology
DX: R31.29 Other microscopic hematuria (principal)
CPT/HCPCS: 81003

== ENCOUNTER 2020-06-13 20:01 | Outpatient (REF) | payer MEDICARE, OTHER, SELFPAY ==
[2020-06-13 21:13] LABS: Anion Gap 7.8 mmol/L (3-11); BUN 16 mg/dL (7-18); CO2 27.2 mmol/L (21.0-32.0); CREATININE 0.78 mg/dL (0.55-1.02); Calcium 8.7 mg/dL (8.5-10.1); Chloride 100 mmol/L (98-107); FREE T4 0.99 ng/dL (0.76-1.46); Glucose 95 mg/dL (74-106); Sodium 135 mmol/L (136-145); TSH 4.32 uIU/mL (0.36-3.74)
== END 2020-06-13 20:21 ==
LOC: NCHCN 20:01
PROVIDERS: PCP Internal Medicine; Visit Provider Internal Medicine
DX: I10 Essential (primary) hypertension (principal); E03.9 Hypothyroidism, unspecified
CPT/HCPCS: 80048; 84439; 84443

== ENCOUNTER → 2020-06-19 14:00 | Outpatient (BNVA) | payer MEDICARE, OTHER, SELFPAY | PROVIDERS: PCP Internal Medicine; Referring Provider Internal Medicine; Visit Provider Nurse Practitioner Gerontology | DX: N39.46 Mixed incontinence (principal); R31.29 Other microscopic hematuria; Z87.440 Personal history of urinary (tract) infections | CPT/HCPCS: 81003; 99214 ==

== ENCOUNTER 2020-07-13 18:55 | Emergency (ER) | payer MEDICARE, OTHER, SELFPAY ==
[2020-07-13 19:02] VITALS: BP 196/82; PULSE 66; RESP 16; TEMP 36.6; O2SAT 95
--- NOTE | 2020-07-13 19:15 | DI.RAD_ITS ---
EXAM: XR RIBS LT W PA LAT CHEST CLINICAL HISTORY: fall, L posterior pain TECHNIQUE: 2D digital imaging was performed. COMPARISON: CR XR CHEST 1V IN DI DEPT from 05/23/2019 FINDINGS: MEDIASTINUM: Normal. HEART: Normal. PULMONARY VASCULATURE: Normal. LUNGS: Clear. Hyperinflation of the lungs suggesting underlying COPD. PLEURAL SPACE: No pleural effusion or pneumothorax. BONE:Normal. Diffuse osteopenia. Degenerative changes in the spine. LEFT RIBS: Normal. OTHER FINDINGS:Normal. IMPRESSION: 1. No acute pulmonary findings. 2. Unremarkable left ribs. DATA REPOSITORY: RADIATION DOSE DELIVERED:
--- NOTE | 2020-07-13 19:15 | DI.CT_ITS ---
EXAM: CT HEAD CERVICAL SPINE WO CLINICAL HISTORY: Fall, L sided pain, trauma. TECHNIQUE: Imaging Protocol: Axial computed tomography images with coronal and sagittal reformatted images were created and reviewed COMPARISON: No exams were available for comparison FINDINGS: CT Head: Ventricles and Extra axial spaces: Normal in size and morphology for the patient's age. Hemorrhage: None. Cerebral parenchyma: There are areas of decreased attenuation in the white matter most consistent wit h chronic microvascular ischemic change. No acute territorial infarct. Midline shift: None. Brainstem/Cerebellum: Normal. Calvarium: Normal. Visualized Paranasal sinuses/Mastoids: Clear. Soft Tissues: Small scalp hematoma in the left periorbital region. CT Cervical Spine: Bones: No acute fracture or subluxation. Multilevel degenerative changes are present in the cervical spine. The bones are osteopenic. Soft Tissues: Unremarkable. Lung Apices: Clear. IMPRESSION: 1. No acute intracranial process. 2. No acute fracture or subluxation in the cervical spine. RADIATION DOSE DELIVERED: 1,025.02mGy.cm Total DLP DATA REPOSITORY: All CT scans at this facility are submitted to the National Radiology Data Registry (NRDR) Dose Index Registry (DIR) with the [employer] (A[employer]). RADIATION OPTIMIZATION: All CT scans at this facility use at least one of these dose optimization te chniques: automated exposure control; mA and/or kV adjustment per patient size (includes targeted exa ms where dose is matched to clinical indication); or iterative reconstruction.
--- NOTE | 2020-07-13 19:24 | ED.GENADUL_ITS ---
Discharge Plan Disposition Patient Disposition: HOME Condition: Good Discharge Details Clinical Impression: Fall, Contusion, Pain in rib, Skin tear Primary Care Provider: Ruddy He ED Provider: Tong Stephenson Home Meds and New Rx's Prescriptions: Continued acetaminophen [Tylenol Extra Strength] 500 mg tablet 1,000 mg PO TID PRNRF: 0 atorvastatin [Lipitor] 40 MG tablet 40 mg PO DAILY RF: 0 paroxetine HCl [Paxil] 20 MG tablet 20 mg PO DAILY RF: 0 esomeprazole magnesium [Nexium] 40 MG capsule,delayed release(DR/EC) 40 mg PO DAILY RF: 0 levothyroxine 112 MCG tablet 100 mcg PO DAILY RF: 0 sennosides [senna] 8.6 mg Tablet 8.6 mg PO QHS RF: 0 lisinopril 5 mg Tablet 5 mg PO HS RF: 0 Discharge Instructions Additional Instructions: 3 sutures were placed in your left eyebrow laceration. May wash gently with soap and water once daily and pat dry. Your sutures will slowly dissolve over approximately 7 to 8 days time. Please change the bandage daily for your other small skin tears. This will take a significant amount of time to heal. If you notice any redness, drainage or discharge please return immediately for reassessment. At this time the x-ray results from the radiologist show no evidence of fracture. Please take Tylenol as needed to help with pain or soreness. If you notice any worsening of your sy mptoms, or any new symptoms such as vomiting, diarrhea, fever, chills, shortness of breath, chest pain, numbness, weakness, or fainting , please return immediately to the emergency department for reevaluation. Please follow up with your primary care provider as soon as possible for reassessment and reevaluation. As always, it was a pleasure participating in your medical care today. Referrals: Ruddy He MD [Primary Care Provider] - Medical Decision Making <Corey Anderson MD - Last Filed: 07/13/20 19:39> Delightful 84-year-old female presents from home with her . She was walking in the home, when she did not see a 3 inch threshold, caught her foot and fell to the left side. She struck her head, arm, chest wall. There was no loss of consciousness. She now complains of left-sided headache, mild left neck pain. On exam she has a small linear laceration to her left eyebrow. She has skin tears of the left forearm but no underlying bony tenderness. Given the mechanism of injury and her age, referred for CT scan of the head and cervical spine. Do feel we should exclude rib fracture and patient referred for rib x- ray as well. The left supraorbital laceration was anesthetized, irrigated, examined in a bloodless field without evidence of foreign body and repaired with 3 interrupted Vicryl sutures. Patient to be signed out to Dr. Stephenson at change of shift pending her imaging results. Please see his note regarding final impression and disposition. <Tong Stephenson, DO - Last Filed: 07/13/20 20:50> Patient signed out to me by my colleague Dr. Corey Anderson, please refer to his documentation, HPI physical exam assessment and plan. At time of transition of care the patient had already been sutured and bandaged and we are waiting on imaging results. X-ray and CT scan results have returned and per radiology show no evidence of acute fracture or bleed or other pathology. On reassessment the patient demonstrates normal neurologic exam, no signs of altered mental status or focal neurologic deficit. Suture and bandaging are in place. The patient did have a small lipoma on her left back, did recommend follow-up for this but otherwise I feel it is benign. She also had a small comedone on her back which she described is notably irritating, this was removed without incident or difficulty. Case was discussed with the who is also at bedside. Discussed red flags for which to return. Discussed standard precautions for wound care. I have extensively reviewed the treatment plan and discharge instructions with the patient and their family. I have addressed all patient concerns at this time. The patient and family was made aware of what symptoms to monitor for that would warrant a return to the emergency department. Discussed the plan with the patient and family, they demonstrate verbal understanding and agreement with our assessment and plan at this time. FINDINGS: Brain: Normal. No hemorrhage. Unremarkable white matter. No mass effect. Cerebral ventricles: No ventriculomegaly. Bones/joints: Unremarkable. No acute fracture. Paranasal sinuses: Visualized sinuses are unremarkable. No fluid levels. Mastoid air cells: Visualized mastoid air cells are well aerated. Soft tissues: Unremarkable. IMPRESSION: No acute intracranial abnormality. FINDINGS: Vertebrae: No acute fracture. Normal alignment. Discs/Spinal canal/Neural foramina: There is multilevel uncovertebral and facet hypertrophy with neural foramina narrowing. Other bones/joints: Diffuse demineralization of the bones. Soft tissues: Unremarkable. Lungs: Lung apices are normal. IMPRESSION: No acute abnormality. Thank you for allowing us to participate in the care of your patient. Dictated and Authenticated by: Eliud Rodas DO 07/13/2020 8:20 PM Eastern Time ([place] & [place]) FINDINGS: Bones/joints: Mild diffuse osteopenia. Mild multilevel degenerative changes within thoracic spine. Vasculature: Atherosclerotic aortic arch. Soft tissues: Normal. Other findings: BB marker over the left hemithorax. IMPRESSION: No displaced fractures identified. FINDINGS: Lungs: Unremarkable. No consolidation. Pleural space: Unremarkable. No pleural effusion. No pneumothorax. Heart/Mediastinum: Unremarkable. No cardiomegaly. Bones/joints: Mild diffuse osteopenia. Degenerative changes within thoracic spine. IMPRESSION: No infiltrates or effusions. No displaced rib fractures identified. Thank you for allowing us to participate in the care of your patient. Dictated and Authenticated by: Gabriel Cuevas MD 07/13/2020 8:19 PM Eastern Time ([place] & [place]) HPI <Corey Anderson MD - Last Filed: 07/13/20 19:39> General Mode of arrival: ambulatory . Date/Time Provider Initiated Documentation: 07/13/20 18:56 . Limitations to Documentation: no limitations . Information obtained by: patient . History of Present Illness 84 year old F presents to the emergency department with the chief complaint of Fall with left- sided pain, described as moderate, Quality is described as dull, and is lo calized to the head, face and left. Patient reports no radiation. Patient started experiencing this minute(s) and it has been constant. No relieving factors improve symptom(s), No exacerbating factors reported . Patient notes headaches; denies syncope and weakness. Patient did receive the following treatments prior to arrival, none Related Data Home Medications Medication Instructions Recorded Confirmed atorvastatin [Lipitor] 40 mg PO DAILY tab-cap 07/09/15 07/13/20 esomeprazole magnesium [Nexium] 40 mg PO DAILY tab-cap 07/09/15 07/13/20 levothyroxine 100 mcg PO DAILY tab-cap 07/09/15 07/13/20 paroxetine HCl [Paxil] 20 mg PO DAILY tab-cap 07/09/15 07/13/20 acetaminophen 500 mg tablet 1,000 mg PO TID PRN tab 05/25/19 07/13/20 sennosides [senna] 8.6 mg PO QHS 06/22/19 07/13/20 lisinopril 5 mg PO HS 07/13/20 07/13/20 Allergies Allergy/AdvReac Type Severity Reaction Status Date / Time metronidazole [From Flagyl] Allergy Intermediate Rash Verified 07/13/20 19:07 nitrofurantoin Allergy Verified 07/13/20 19:07 [From Macrobid] estrogens, conjugated AdvReac Severe Verified 07/13/20 19:07 [From Premarin] ciprofloxacin [From Cipro] AdvReac Intermediate Muscle/Tendon Verified 07/13/20 19:07 aches ciprofloxacin HCl AdvReac Intermediate Muscle/Tendon Verified 07/13/20 19:07 [From Cipro] aches General Stated Complaint: Trauma ZULEYMA: 3 Review of Systems <Corey Anderson MD - Last Filed: 07/13/20 19:39> Narrative: 6 systems reviewed and otherwise negative. Denies chest pain or palpitations. No shortness of breath. No syncope. Now with mild left-sided headache and neck pain. Mild left arm pain. PFSH <Corey Anderson MD - Last Filed: 07/13/20 19:39> Medical History Cholecystectomy planned Chronic constipation Depression Fibromyalgia GERD (gastroesophageal reflux disease) History of Alba's esophagus Hypothyroidism IBS (irritable bowel syndrome) Osteoarthritis Surgical History History of bladder surgery History of cholecystectomy History of hand surgery bladder sling Family History Other Cancer Social History Smoking/Tobacco Use Status: Former Tobacco Use Alcohol Intake: never Drug use: Never Substance use type: does not use Do you feel safe at home: Yes Do you feel safe in your relationship?: Yes Exam <Corey Anderson MD - Last Filed: 07/13/20 19:39> Narrative Exam Narrative: GEN: awake, alert, oriented 3. Pleasant, well groomed, interactive. HEAD: Normocephalic ENT: Left supraorbital lateral subtle linear laceration. No midface instability or bony tenderness. No facial anesthesia. Mucous membranes moist, oropharynx unremarkable, External ear exam unremarkable EYES: PERRL, EOMI NECK: Full ROM, no ZANDER, no menigismus. No tenderness, no midline step-off or deformity. Back: Nontender without step-off or deformity. CHEST/RESP: Minimal left posterior chest wall tenderness to palpation, clear to auscultation bilateral, no wheeze/rhonchi/rales CARDIOVASCULAR: RRR, no murmur, rub lance. 2+ Rad pulse bilateral ABDOMEN: Soft, nontender, no mass. +Bowel sounds EXT: Full ROM, no edema, no rash. Left forearm with skin tear. No bony tenderness of the forearm or elbow. Neuro: Grossly normal neurologic exam, conversant, interactive. Psych: Speech fluent, thoughts congruent, affect normal Course <Corey Anderson MD - Last Filed: 07/13/20 19:39> Vital Signs Vital signs: Vital Signs Temperature 36.6 C 07/13/20 19:02 Pulse 66 07/13/20 19:02 Respiratory Rate 16 07/13/20 19:02 Blood Pressure 196/82 H 07/13/20 19:02 Pulse Oximetry 95 07/13/20 19:02 Temperature 36.6 C 07/13/20 19:02 Pulse 66 07/13/20 19:02 Respiratory Rate 16 07/13/20 19:02 Respiratory Effort Non-Labored 07/13/20 19:09 Respiratory Pattern Normal 07/13/20 19:09 Blood Pressure 196/82 H 07/13/20 19:02 Pulse Oximetry 95 07/13/20 19:02 Pain Level 5 07/13/20 19:09 Procedures <Corey Anderson MD - Last Filed: 07/13/20 19:39> Laceration Laceration 1: Site: face Side (If applicable): left Size (cm): 1.5 Description: linear Depth: simple, single layer Local Anesthetic: Lidocaine 1% Amount of anesthesia used (mL): 0.5 Pre-repair: wound explored Skin layer closed with: vicryl Size (cm): 5-0 Number of sutures: 3 Technique: simple, interrupted Sign Out <Corey Anderson MD - Last Filed: 07/13/20 19:39> Sign Out Data: Sign Out Comment: followup imaging/re-eval Last updated by Corey Anderson MD at 07/13/20 19:41
[2020-07-13] MEDS: Acetaminophen 325 MG TAB 650 MG PO (19:44)
--- NOTE | 2020-07-18 16:03 | DI.VRAD_ITS ---
PROCEDURE INFORMATION: Exam: CT Head Without Contrast Exam date and time: 07/13/2020 7:50 PM Age: 84 years old Clinical indication: Injury or trauma; Blunt trauma (contusions or hematomas); Patient HX: Fall, L sided pain, trauma TECHNIQUE: Imaging protocol: Computed tomography of the head without contrast. COMPARISON: No relevant prior studies available. FINDINGS: Brain: Normal. No hemorrhage. Unremarkable white matter. No mass effect. Cerebral ventricles: No ventriculomegaly. Bones/joints: Unremarkable. No acute fracture. Paranasal sinuses: Visualized sinuses are unremarkable. No fluid levels. Mastoid air cells: Visualized mastoid air cells are well aerated. Soft tissues: Unremarkable. IMPRESSION: No acute intracranial abnormality. PROCEDURE INFORMATION: Exam: CT Cervical Spine Without Contrast Exam date and time: 07/13/2020 7:50 PM Age: 84 years old Clinical indication: Injury or trauma; Blunt trauma (contusions or hematomas); Patient HX: Fall, L sided pain, trauma TECHNIQUE: Imaging protocol: Computed tomography images of the cervical spine without contrast. COMPARISON: No relevant prior studies available. FINDINGS: Vertebrae: No acute fracture. Normal alignment. Discs/Spinal canal/Neural foramina: There is multilevel uncovertebral and facet hypertrophy with neural foramina narrowing. Other bones/joints: Diffuse demineralization of the bones. Soft tissues: Unremarkable. Lungs: Lung apices are normal. IMPRESSION: No acute abnormality. Dictated and Authenticated by: Eliud Rodas MD. Ordering:JIGAR Nicole MD
--- NOTE | 2020-07-18 16:03 | DI.VRAD_ITS ---
PROCEDURE INFORMATION: Exam: XR Left Ribs Exam date and time: 07/13/2020 8:09 PM Age: 84 years old Clinical indication: Chest wall pain; Left; Patient HX: Fall, L posterior pain TECHNIQUE: Imaging protocol: XR Left ribs. Views: 2 views. COMPARISON: CR XR CHEST 1V IN DI DEPT 05/23/2019 2:47 PM FINDINGS: Bones/joints: Mild diffuse osteopenia. Mild multilevel degenerative changes within thoracic spine. Vasculature: Atherosclerotic aortic arch. Soft tissues: Normal. Other findings: BB marker over the left hemithorax. IMPRESSION: No displaced fractures identified. PROCEDURE INFORMATION: Exam: XR Chest, 2 Views Exam date and time: 07/13/2020 8:09 PM Age: 84 years old Clinical indication: Chest wall pain; Left; Patient HX: Fall, L posterior pain TECHNIQUE: Imaging protocol: XR of the chest Views: 2 views. COMPARISON: CR XR CHEST 1V IN DEPT 05/23/2019 2:47 PM FINDINGS: Lungs: Unremarkable. No consolidation. Pleural space: Unremarkable. No pleural effusion. No pneumothorax. Heart/Mediastinum: Unremarkable. No cardiomegaly. Bones/joints: Mild diffuse osteopenia. Degenerative changes within thoracic spine. IMPRESSION: No infiltrates or effusions. No displaced rib fractures identified. Dictated and Authenticated by: Gabriel Cuevas MD. Ordering:JIGAR Nicole MD
== END 2020-07-13 21:05 | disposition home or self-care (01) ==
PROVIDERS: Emergency Provider Student in an Organized Health Care Education/Training Program; PCP Internal Medicine
DX: S01.112A Laceration without foreign body of left eyelid and periocular area, initial encounter (principal); S51.812A Laceration without foreign body of left forearm, initial encounter; R07.81 Pleurodynia; R51.9 Headache, unspecified; M54.2 Cervicalgia; W18.39XA Other fall on same level, initial encounter
CPT/HCPCS: 12011; 99282; 70450; 71046; 71100; 72125

== ENCOUNTER 2020-08-09 18:00 | Outpatient (REF) | payer MEDICARE, OTHER, SELFPAY ==
[2020-08-09 21:00] LABS: HCT 38.2 % (36.0-46.0); HGB 12.8 g/dL (11.2-15.7); MCH 32.1 pg (27.0-33.0); MCHC 33.5 % (32.0-36.0); MCV 95.7 fL (80-95); Platelet Count 332 10^3/uL (130-400); RBC 3.99 10^6/uL (3.93-5.22); RDW 12.5 % (11.7-14.6); RDW-SD 44.4 fL; WBC 7.03 10^3/uL (4.4-10.8)
[2020-08-09 21:06] LABS: ALT 29 U/L (14-59); AST 25 U/L (15-37); Albumin 4.2 g/dL (3.4-5.0); Alkaline Phosphatase 60 U/L (46-116); Anion Gap 11.2 mmol/L (3-11); BUN 18 mg/dL (7-18); Bilirubin, Total 0.4 mg/dL (0.2-1.0); CO2 26.8 mmol/L (21.0-32.0); CREATININE 0.74 mg/dL (0.55-1.02); Calcium 8.9 mg/dL (8.5-10.1); Chloride 95 mmol/L (98-107); Glucose 89 mg/dL (74-106); NT-proBNP 147 pg/mL (<300); Potassium 4.3 mmol/L (3.5-5.1); Sodium 133 mmol/L (136-145); Total Protein 7.3 g/dL (6.4-8.2)
== END 2020-08-09 18:20 ==
LOC: NCHCN 18:00
PROVIDERS: PCP Internal Medicine; Visit Provider Internal Medicine
DX: R06.01 Orthopnea (principal); R60.9 Edema, unspecified; I10 Essential (primary) hypertension; R21 Rash and other nonspecific skin eruption
CPT/HCPCS: 80053; 85027; 83880

== ENCOUNTER 2020-08-11 17:02 | Emergency (ER) | payer MEDICARE, OTHER, SELFPAY ==
[2020-08-11 17:15] VITALS: BP 170/67; PULSE 70; RESP 20; TEMP 37.3; O2SAT 99
[2020-08-11] MEDS: Acetaminophen 500 MG TAB 1000 MG PO (17:58)
[2020-08-11 17:59] LABS: Bilirubin Negative (Negative); Blood Small (Negative); Clarity Clear (Clear); Glucose Negative (Negative); Ketones Negative (Negative); Leukocyte Esterase Negative (Negative); Nitrite Negative (Negative); Specific Gravity 1.015 (1.005-1.025); Urobilinogen 0.2 EU/dL (Up TO 0.2); pH 7.5 (5-8)
--- NOTE | 2020-08-11 18:15 | DI.CT_ITS ---
EXAM: CT CHEST/ABD/PEL W TECHNIQUE: CT examination of the chest, abdomen, and pelvis was performed with bolus infusion of 100 cc of Omnipaque 350. Additionally, radiographs of the chest and right ribs were obtained. COMPARISON: CT CT ABDOMEN PELVIS W from 06/05/[address] ABDOMEN PELVIS W from 06/05/2019 CR,XR XR RIBS RT PA CHEST 3V from 08/11/2020 FINDINGS: There is no evidence of a thoracic vascular injury. The lungs are predominantly clear, there is a 4 millimeter in diameter intrapulmonary nodule in the right middle lobe, follow-up chest CT recommended in 12 months.. No pneumothorax or pleural effusion. No mediastinal hematoma. No adenopathy in the ch est. Tracheobronchial tree appears intact. The liver, spleen, and pancreas appear normal. Gallbladder has been surgically removed. Adrenals and kidneys are unremarkable. No evidence of urinary tract injury or obstruction. No abdominal or pelvic vascular injury seen. No abdominal or pelvic adenopathy. No significant abdomi nal wall hernia or hematoma. No evidence of bowel injury. There are old left rib fractures, there are acute right lateral 8th and 9th rib fractures.. IMPRESSION: No evidence of acute visceral injury of the chest, abdomen, or pelvis. Follow-up chest CT recommended in 12 months for right middle lobe intrapulmonary nodule. Acute right rib fractures, mildly displaced. RADIATION DOSE DELIVERED: 1,131.09mGy.cm Total DLP 1,131.09mGy.cm Total DLP DATA REPOSITORY: All CT scans at this facility are submitted to the National Radiology Data Registry (NRDR) Dose Index Registry (DIR) with the [employer] ([employer]). RADIATION OPTIMIZATION: All CT scans at this facility use at least one of these dose optimization te chniques: automated exposure control; mA and/or kV adjustment per patient size (includes targeted exa ms where dose is matched to clinical indication); or iterative reconstruction.
[2020-08-11 18:21] LABS: Bacteria Negative HPF (Negative); C & S Indicated? No; Casts Negative LPF (Negative); Crystals Negative HPF (Negative); Epithelial Cells Negative HPF (Negative); Mucus Negative (Negative); Other Cells Negative (Negative); RBC Negative HPF (0-2)
--- NOTE | 2020-08-11 18:35 | DI.VRAD_ITS ---
PROCEDURE INFORMATION: Exam: XR Chest, 1 View Exam date and time: 08/11/2020 17:45 Age: 85 years old Clinical indication: Injury or trauma; Fall; Blunt trauma (contusions or hematomas) TECHNIQUE: Imaging protocol: XR of the chest Views: 1 view. COMPARISON: CR XR RIBS LT W PA LAT CHEST 07/13/2020 19:58 FINDINGS: Lungs: Apical scarring in the lungs similar to prior and benign in appearance. Emphysema without airspace consolidation. Pleural space: No significant pleural effusion. No pneumothorax. Heart/Mediastinum: No cardiomegaly. Vasculature: Tortuous aorta. Bones/joints: Acute fractures of right posterolateral ribs, likely the right posterolateral 8th, moderately displaced and 9th, mildly displaced, ribs. Organs: Right upper quadrant clips, probable cholecystectomy. IMPRESSION: 1. Acute fractures of right 8th and 9th ribs as described with displacement. 2. Emphysema without airspace consolidation. Dictated and Authenticated by: Norma Shanks MD. Ordering:JESSY Hoffman MD
[2020-08-11 18:40] LABS: Abs Immature Grans 0.03 10^3/uL (0.0-0.06); Absolute Basophil Count 0.07 10^3/uL (0.0-0.2); Absolute Eosinophil Count 0.13 10^3/uL (0.0-0.7); Absolute Lymphocyte Count 1.95 10^3/uL (1.2-3.4); Absolute Monocyte Count 0.97 10^3/uL (0.1-0.8); Absolute Neutrophil Count 5.73 10^3/uL (1.2-6.7); Basophils % 0.8; Eosinophils % 1.5; HCT 37.7 % (36.0-46.0); HGB 12.9 g/dL (11.2-15.7); Immature Grans % 0.3; MCH 32.7 pg (27.0-33.0); MCHC 34.2 % (32.0-36.0); MCV 95.7 fL (80-95); MPV 8.4 fL (8.0-11.0); Monocytes % 10.9; Neutrophils % 64.5; Nucleated RBC 0 %; Platelet Count 298 10^3/uL (130-400); RBC 3.94 10^6/uL (3.93-5.22); RDW 12.5 % (11.7-14.6); RDW-SD 44.2 fL; WBC 8.88 10^3/uL (4.4-10.8)
[2020-08-11 18:51] LABS: ALT 29 U/L (14-59); AST 27 U/L (15-37); Alkaline Phosphatase 61 U/L (46-116); Anion Gap 6.3 mmol/L (3-11); BUN 20 mg/dL (7-18); Bilirubin, Total 0.4 mg/dL (0.2-1.0); CO2 30.7 mmol/L (21.0-32.0); CREATININE 0.81 mg/dL (0.55-1.02); Calcium 8.6 mg/dL (8.5-10.1); Chloride 95 mmol/L (98-107); Glucose 101 mg/dL (74-106); Potassium 4.4 mmol/L (3.5-5.1); Sodium 132 mmol/L (136-145); Total Protein 7.7 g/dL (6.4-8.2)
[2020-08-11] MEDS: Ketorolac 15 MG/ML VIAL IVP (18:55)
[2020-08-11] MEDS: Omnipaque 350 MG/ML 100 ML BTL IJ (19:22)
[2020-08-11] MEDS: Normal Saline - Diluent 50 ML VIAL IV (19:23)
[2020-08-11] MEDS: Normal Saline Flush 10 ML SYR IVP (19:23)
[2020-08-11 19:28] VITALS: BP 201/70; PULSE 64; RESP 16; TEMP 37.2; O2SAT 99
--- NOTE | 2020-08-11 19:42 | W.ED.GENAD ---
Discharge Plan Disposition Patient Disposition: HOME Condition: Stable Discharge Details Clinical Impression: Ribs, multiple fractures Primary Care Provider: Ruddy He ED Provider: Yasmin Draper Home Meds and New Rx's Prescriptions: No Action acetaminophen [Tylenol Extra Strength] 500 mg tablet 1,000 mg PO TID PRNRF: 0 atorvastatin [Lipitor] 40 MG tablet 40 mg PO DAILY RF: 0 paroxetine HCl [Paxil] 20 MG tablet 20 mg PO DAILY RF: 0 esomeprazole magnesium [Nexium] 40 MG capsule,delayed release(DR/EC) 40 mg PO DAILY RF: 0 levothyroxine 112 MCG tablet 100 mcg PO DAILY RF: 0 sennosides [senna] 8.6 mg Tablet 8.6 mg PO QHS RF: 0 torsemide 10 mg Tablet 10 mg PO DAILY RF: 0 Discharge Instructions Instructions: Rib Fracture (ED) Additional Instructions: continue acetaminophen 3 times daily as previously directed Add ibuprofen 400 mg 3 times daily with food. 5 days then as needed for pain Can add oxycodone 5 mg at night for severe pain that limits your sleep Resume your torsemide for your blood pressure tomorrow morning Apply lidocaine patch to area of pain at night to help sleep and remove in the a.m. you can apply in the a.m. and repeat move at bedtime if you feel you would benefit more from wearing the patch during the day Use your incentive spirometer every 1-2 hours while awake during the day Referrals: Ruddy He MD [Primary Care Provider] - (call in am for follow up appointment) Medical Decision Making mechanical fall. isolated injury with back pain. chest xray shows displaced 8&9 ribs on right. given acetaminophen 1000 mg PO with some improvement in pain. CT chest abd pelvis with contrast show no additional pathology. given toradol 15 mg IV with further improvement in pain, lidocaine patch applied. incentive spirometer provided with teaching. 2 lidoderm patches given at discharge for home use. patient is stable and ready for discharge to home. blood pressure elevated while in department but recently started on torsemide which she did not take today, I will not provide tonight as she will need to urinate frequently and will place her at increased risk for fall. she will take in am. likely elevated also d/t pain. will provide oxycodone 5 mg 4 tabs for home use for severe breakthrough pain to help her sleep if needed. should f/u with pcp, call in am for appointment Medical Records Medical records reviewed: Yes I reviewed the patient's medical records. Medical records narrative: chest xray IMPRESSION: 1. Acute fractures of right 8th and 9th ribs as described with displacement. 2. Emphysema without airspace consolidation. ct chest/abd/pelvis with contrast: IMPRESSION: 1. Acute right 8th and 9th rib fractures as described. 2. No pneumothorax. 3. Minimal dependent subsegmental atelectasis. 4. Additional findings as described. Lab Data Lab results reviewed: Yes I reviewed the patient's lab results. Lab results narrative: Laboratory Results - last 24 hr 08/11/20 08/11/20 08/11/20 17:25 18:30 18:30 WBC 8.88 RBC 3.94 Hgb 12.9 Hct 37.7 MCV 95.7 H MCH 32.7 MCHC 34.2 RDW 12.5 Plt Count 298 MPV 8.4 Immature Gran % 0.3 Neutrophils % 64.5 Lymphocytes % 22.0 Monocytes % 10.9 Eosinophils % 1.5 Basophils % 0.8 Nucleated RBC % 0 Absolute Neutrophils 5.73 Absolute Lymphocytes 1.95 Absolute Monocytes 0.97 H Absolute Eosinophils 0.13 Absolute Basophils 0.07 Sodium 132 L Potassium 4.4 Chloride 95 L Carbon Dioxide 30.7 Anion Gap 6.3 BUN 20 H Creatinine 0.81 Estimated GFR/1.73 m2 >= 60.00 Glucose 101 Calcium 8.6 Total Bilirubin 0.4 AST 27 ALT 29 Alkaline Phosphatase 61 Total Protein 7.7 Albumin 4.0 Urine Color Yellow Urine Clarity Clear Urine pH 7.5 Ur Specific [place] 1.015 Urine Protein Negative Urine Ketones Negative Urine Blood Small H Urine Nitrite Negative Urine Bilirubin Negative Urine Urobilinogen 0.2 Ur Leukocyte Esterase Negative Urine RBC Negative Urine WBC 3-5 Ur Epithelial Cells Negative Urine Crystals Negative Urine Bacteria Negative Urine Casts Negative Urine Mucus Negative Urine Other Negative Ur Culture Indicated? No Urine Glucose Negative HPI General Date/Time Provider Initiated Documentation: 08/11/20 17:04. Limitations to Documentation: no limitations. Information obtained by: patient. HPI Narrative: patient with mechanical fall where she fell back onto the arm of an outdoor chair, landing on the posterior right back. did not get right up as she was afraid of severe injury. did not strike her head, no neck pain. EMS was called and assisted her up, she ambulated up to the house and signed off to present here by private vehicle. she has not taken any pain medication since am which it was scheduled for chronic arthritic pain Related Data Home Medications Medication Instructions Recorded Confirmed atorvastatin [Lipitor] 40 mg PO DAILY tab-cap 07/09/15 08/11/20 esomeprazole magnesium [Nexium] 40 mg PO DAILY tab-cap 07/09/15 08/11/20 levothyroxine 100 mcg PO DAILY tab-cap 07/09/15 08/11/20 paroxetine HCl [Paxil] 20 mg PO DAILY tab-cap 07/09/15 08/11/20 acetaminophen 500 mg tablet 1,000 mg PO TID PRN tab 05/25/19 08/11/20 sennosides [senna] 8.6 mg PO QHS 06/22/19 08/11/20 torsemide 10 mg PO DAILY 08/11/20 08/11/20 Allergies Allergy/AdvReac Type Severity Reaction Status Date / Time metronidazole [From Flagyl] Allergy Intermediate Rash Verified 08/11/20 17:17 nitrofurantoin Allergy Verified 08/11/20 17:17 [From Macrobid] estrogens, conjugated AdvReac Severe Verified 08/11/20 17:17 [From Premarin] ciprofloxacin [From Cipro] AdvReac Intermediate Muscle/Tendon Verified 08/11/20 17:17 aches ciprofloxacin HCl AdvReac Intermediate Muscle/Tendon Verified 08/11/20 17:17 [From Cipro] aches General Stated Complaint: Chest/Rib ZULEYMA: 3 Review of Systems All systems reviewed & are unremarkable except as noted in HPI and below Constitutional Constitutional: Denies fever(s) and Reports frequent falls ENT Ears, Nose, Mouth, and Throat: Denies vertigo and Denies dizziness Cardiovascular Cardiovascular: Denies chest pain, Denies syncope and Denies dyspnea Respiratory Respiratory: Denies cough, Denies dyspnea and Denies wheezing Gastrointestinal Gastrointestinal: Denies abdominal pain, Denies nausea and Denies vomiting Musculoskeletal Musculoskeletal: Reports back pain and Denies deformity Integumentary/Breasts Skin/Breast: Reports erythema (approx baseball side over mid right back) Neurologic Neurologic: Denies confusion, Denies vertigo, Denies dizziness, Denies syncope and Reports frequent falls Psychiatric Psychiatric: Denies confusion Hematologic/Lymphatic Hematologic/Lymphatic: Denies easy bleeding and Denies easy bruising Allergic/Immunologic Allergic/Immunologic: Denies wheezing PFSH Medical History Cholecystectomy planned Chronic constipation Depression Fibromyalgia GERD (gastroesophageal reflux disease) History of Alba's esophagus Hypothyroidism IBS (irritable bowel syndrome) Osteoarthritis Surgical History History of bladder surgery History of cholecystectomy History of hand surgery bladder sling Family History Other Cancer Social History Smoking/Tobacco Use Status: Former Tobacco Use Smoking risk assessment performed?: Yes Alcohol Intake: never Drug use: Never Substance use type: does not use Do you feel safe at home: Yes Do you feel safe in your relationship?: Yes Exam Const General: cooperative, healthy appearing, comfortable and in distress mild Nutritional Appearance: average body habitus Orientation: alert, awake and oriented x3 HENMT Head: normal to inspection, normocephalic and atraumatic Mouth: oral mucosae normal Chest Chest: normal inspection of the chest Resp Effort & Inspection: normal respiratory effort Auscultation: lung sounds not diminished, no wheezes, no rubs and other (course in the right base) Tactile Fremitus: tactile fremitus absent Cardio Rate: regular rate Rhythm: regular rhythm Back/Spine/Pelvis Back: No ecchymosis and back tenderness Skin Trauma: other (abrasion to right back) Neuro General: patient alert, patient awake, patient oriented x3, moves all extremities and no focal motor deficits Extrem General: normal to inspection, full ROM and no pedal edema Course Vital Signs Vital signs: Vital Signs Temperature 37.3 C 08/11/20 17:15 Pulse 70 08/11/20 17:15 Respiratory Rate 20 08/11/20 17:15 Blood Pressure 170/67 H 08/11/20 17:15 Pulse Oximetry 99 08/11/20 17:15 Temperature 37.2 C 08/11/20 19:28 Temperature Source Skin 08/11/20 19:28 Pulse 64 08/11/20 19:28 Respiratory Rate 16 08/11/20 19:28 Respiratory Effort Non-Labored 08/11/20 17:30 Respiratory Depth Normal 08/11/20 17:30 Respiratory Pattern Normal 08/11/20 17:30 Blood Pressure 201/70 H 08/11/20 19:28 Blood Pressure Position Sitting 08/11/20 17:15 Pulse Oximetry 99 08/11/20 19:28 Oxygen Delivery Method Room Air 08/11/20 19:28 Oxygen Flow Rate 0 08/11/20 19:28 Pain Level 5 08/11/20 17:58 Lab/Test Results Lab/Test Results: Laboratory Tests Range/Units 08/11/20 08/11/20 08/11/20 17:25 18:30 18:30 WBC (4.4-10.8) 10^3/uL 8.88 RBC (3.93-5.22) 10^6/uL 3.94 Hgb (11.2-15.7) g/dL 12.9 Hct (36.0-46.0) % 37.7 MCV (80-95) fL 95.7 H MCH (27.0-33.0) pg 32.7 MCHC (32.0-36.0) % 34.2 RDW (11.7-14.6) % 12.5 Plt Count (130-400) 10^3/uL 298 MPV (8.0-11.0) fL 8.4 Immature Gran % 0.3 Neutrophils % 64.5 Lymphocytes % 22.0 Monocytes % 10.9 Eosinophils % 1.5 Basophils % 0.8 Nucleated RBC % % 0 Absolute Neutrophils (1.2-6.7) 10^3/uL 5.73 Absolute Lymphocytes (1.2-3.4) 10^3/uL 1.95 Absolute Monocytes (0.1-0.8) 10^3/uL 0.97 H Absolute Eosinophils (0.0-0.7) 10^3/uL 0.13 Absolute Basophils (0.0-0.2) 10^3/uL 0.07 Sodium (136-145) mmol/L 132 L Potassium (3.5-5.1) mmol/L 4.4 Chloride (98-107) mmol/L 95 L Carbon Dioxide (21.0-32.0) mmol/L 30.7 Anion Gap (3-11) mmol/L 6.3 BUN (7-18) mg/dL 20 H Creatinine (0.55-1.02) mg/dL 0.81 Estimated GFR/1.73 m2 (mL/min/1.73m2) >= 60.00 Glucose (74-106) mg/dL 101 Calcium (8.5-10.1) mg/dL 8.6 Total Bilirubin (0.2-1.0) mg/dL 0.4 AST (15-37) U/L 27 ALT (14-59) U/L 29 Alkaline Phosphatase (46-116) U/L 61 Total Protein (6.4-8.2) g/dL 7.7 Albumin (3.4-5.0) g/dL 4.0 Urine Color (Yellow) Yellow Urine Clarity (Clear) Clear Urine pH (5-8) 7.5 Ur Specific [place] (1.005-1.025) 1.015 Urine Protein (Negative) mg/dL Negative Urine Ketones (Negative) mg/dL Negative Urine Blood (Negative) Small H Urine Nitrite (Negative) Negative Urine Bilirubin (Negative) Negative Urine Urobilinogen (Up TO 0.2) EU/dL 0.2 Ur Leukocyte Esterase (Negative) Negative Urine RBC (0-2) HPF Negative Urine WBC (0-5) HPF 3-5 Ur Epithelial Cells (Negative) HPF Negative Urine Crystals (Negative) HPF Negative Urine Bacteria (Negative) HPF Negative Urine Casts (Negative) LPF Negative Urine Mucus (Negative) Negative Urine Other (Negative) Negative Ur Culture Indicated? No Urine Glucose (Negative) mg/dL Negative
--- NOTE | 2020-08-11 19:43 | DI.VRAD_ITS ---
PROCEDURE INFORMATION: Exam: CT Chest With Contrast Exam date and time: 08/11/2020 18:19 Age: 85 years old Clinical indication: Injury or trauma; Blunt trauma (contusions or hematomas); Injury date: 08/21/20; Injury details: Fall, trauma, ruq pain, rib pain; Prior surgery; Surgery date: 6+ months; Surgery type: Cholecystectomy TECHNIQUE: Imaging protocol: Computed tomography of the chest with intravenous contrast. Radiation optimization: All CT scans at this facility use at least one of these dose optimization techniques: automated exposure control; mA and/or kV adjustment per patient size (includes targeted exams where dose is matched to clinical indication); or iterative reconstruction. Contrast material: OMNIPAQUE 350; Contrast volume: 100 ml; Contrast route: INTRAVENOUS (IV); COMPARISON: CT ABDOMEN PELVIS W 06/05/2019 12:32 FINDINGS: Lungs: A few incidental pulmonary nodules are present. Follow-up as per institutional protocol. No airspace consolidation. Minimal dependent subsegmental atelectasis. Pleural space: No pneumothorax. No significant pleural fluid. No drainable collections. Heart: No cardiomegaly. No pericardial effusion. Aorta: No aortic aneurysm. Lymph nodes: No enlarged lymph nodes. Bones/joints: Acute moderately displaced right posterolateral 8th and moderately displaced right posterolateral 9th rib fractures. Slight over-ride. Nonacute left-sided rib fractures are seen without displacement. No acute pathology in the thoracic spine. Soft tissues: No suspicious lesions. IMPRESSION: 1. Acute right 8th and 9th rib fractures as described. 2. No pneumothorax. 3. Minimal dependent subsegmental atelectasis. 4. Additional findings as described. PROCEDURE INFORMATION: Exam: CT Abdomen And Pelvis With Contrast Exam date and time: 08/11/2020 18:19 Age: 85 years old Clinical indication: Injury or trauma; Blunt trauma (contusions or hematomas); Injury date: 08/21/20; Injury details: Fall, trauma, ruq pain, rib pain; Prior surgery; Surgery date: 6+ months; Surgery type: Cholecystectomy TECHNIQUE: Imaging protocol: Computed tomography of the abdomen and pelvis with intravenous contrast. Radiation optimization: All CT scans at this facility use at least one of these dose optimization techniques: automated exposure control; mA and/or kV adjustment per patient size (includes targeted exams where dose is matched to clinical indication); or iterative reconstruction. Contrast material: OMNIPAQUE 350; Contrast volume: 100 ml; Contrast route: INTRAVENOUS (IV); COMPARISON: CT ABDOMEN PELVIS W 06/05/2019 12:32 FINDINGS: Liver: No mass. Gallbladder and bile ducts: Cholecystectomy. Pancreas: No ductal dilation. No masses. Spleen: No splenomegaly or focal lesions. Adrenal glands: Benign right adrenal calcification. Normal left adrenal gland. Kidneys and ureters: No renal masses or hydronephrosis bilaterally. Stomach and bowel: Scattered minor colonic diverticula. No diverticulitis. No focal pathology in the small bowel. Appendix: No evidence of appendicitis. Intraperitoneal space: No free air. No significant fluid collection. Vasculature: Atherosclerosis. No aortic aneurysm. Lymph nodes: No significantly enlarged lymph nodes. Urinary bladder: Unremarkable as visualized. Reproductive: Hysterectomy. Bones/joints: Degenerative changes in the spine. No acute fracture or subluxation. Soft tissues: No suspicious lesions. IMPRESSION: 1. No acute findings. 2. Incidental findings as described. Dictated and Authenticated by: Norma Shanks MD. Ordering:JESSY Hoffman MD
[2020-08-11] MEDS: Lidocaine 5% Patch 3 PATCH TP (20:34)
== END 2020-08-11 20:37 | disposition home or self-care (01) ==
PROVIDERS: Emergency Provider Nurse Practitioner Acute Care; PCP Internal Medicine
DX: S22.41XA Multiple fractures of ribs, right side, initial encounter for closed fracture (principal); W01.190A Fall on same level from slipping, tripping and stumbling with subsequent striking against furniture, initial encounter
CPT/HCPCS: 36415; 74177; 80053; 96374; 99285; 71046; 71100; 71260; 81003; 81015; 85025; 99284; J1885; J3490

== ENCOUNTER 2020-08-12 20:10 | Emergency (ER) | payer MEDICARE, OTHER, SELFPAY ==
--- NOTE | 2020-08-12 20:15 | DI.RAD_ITS ---
EXAM: XR CHEST 2V PA LATERAL CLINICAL HISTORY: rib fx, ?pna TECHNIQUE: 2D digital imaging was performed. COMPARISON: CR XR CHEST 2V PA LATERAL from 05/23/2019 FINDINGS: MEDIASTINUM: Normal. HEART: Normal. PULMONARY VASCULATURE: Unremarkable LUNGS: No focal consolidating infiltrates. Hyperinflation of the lungs is noted suggesting underlyin g COPD. There is also mild pulmonary fibrosis. PLEURAL SPACE: No pleural effusion or pneumothorax. BONE:Within normal limits for the patient's age. OTHER FINDINGS:Normal. IMPRESSION: No definite acute pulmonary process. COPD and pulmonary fibrosis. DATA REPOSITORY: RADIATION DOSE DELIVERED:
[2020-08-12 20:17] VITALS: BP 181/78; PULSE 80; RESP 18; TEMP 36.7; O2SAT 96
--- NOTE | 2020-08-12 20:30 | ED.GENADUL_ITS ---
Discharge Plan Disposition Patient Disposition: HOME Condition: Stable Discharge Details Clinical Impression: Ribs, multiple fractures Primary Care Provider: Ruddy He ED Provider: Rahul Wheatley Home Meds and New Rx's Prescriptions: New levofloxacin 750 mg tablet 750 mg PO DAILY Qty: 5 RF: 0 oxycodone 5 mg tablet 5 mg PO Q6H PRNQty: 7 RF: 0 Continued acetaminophen [Tylenol Extra Strength] 500 mg tablet 1,000 mg PO TID PRNRF: 0 atorvastatin [Lipitor] 40 MG tablet 40 mg PO DAILY RF: 0 paroxetine HCl [Paxil] 20 MG tablet 20 mg PO DAILY RF: 0 esomeprazole magnesium [Nexium] 40 MG capsule,delayed release(DR/EC) 40 mg PO DAILY RF: 0 levothyroxine 112 MCG tablet 100 mcg PO DAILY RF: 0 sennosides [senna] 8.6 mg Tablet 8.6 mg PO QHS RF: 0 torsemide 10 mg Tablet 10 mg PO DAILY RF: 0 Discharge Instructions Instructions: Rib Fracture (ED) Additional Instructions: take 1000mg tylenol every 6 hours. If you need additional pain relief take 1 oxycodone, do not drink alcohol or drive if you take this medicine follow up with your primary care provider within a week if you feel more ill, difficulty breathing or severe worsening pain return to the emergency department Medical Decision Making 85 yo female who had a fall yesterday and found to have right 8-9 rib fractures and no other findings on chest/abd/pelvis CT comes in with conitnued pain over right lateral and posterior chest over ribs that are fx'd and was checking her BP today and it was 180. No cough, central chest pressure, no dyspnea, and hasn't taken anything for the pain. Has clear lungs, no murmurs, no jvd, no abdominal tenderness. Given lack of concerning symptoms do not feel workup for her bp indicated or is IV or oral therapy other than what she is already taking, and her pain could be causing her symptoms. No focal neuro deficits. Suspect her pain is due to lack of taking any pain meds will give oxycodone and obtain repeat xray to evaluate for possible infiltrate pt feels better after oxycodone, xray shows mild right atelectasis vs infiltrate, I suspect atelectasis as she has not been using her IS and has no cough or fevers. Will start her on levofloxacin to help prevent developing pna and reiterated use of IS. She feels improved and is stable for d/c, return precautions given. SHe states she has taken levofloxacin in the past and tolerates this well so would like to start this Differential Diagnosis Differential Diagnosis: rib fracture, pna Medical Records Medical records reviewed: Yes I reviewed the patient's medical records. Imaging Data Radiologic Study: Attestation: I personally reviewed and interpreted this imaging study as follows: Imaging: X-Ray Radiologist's impression: IMPRESSION: Mild right basilar atelectasis or infiltrate HPI General Mode of arrival: ambulatory . Date/Time Provider Initiated Documentation: 08/12/20 20:12 . Limitations to Documentation: no limitations . History of Present Illness 85 year old F presents to the emergency department with the chief complaint of right sided chest pain, described as moderate, and it has been constant. No relieving factors improve symptom(s), No exacerbating factors reported . Related Data Home Medications Medication Instructions Recorded Confirmed atorvastatin [Lipitor] 40 mg PO DAILY tab-cap 07/09/15 08/11/20 esomeprazole magnesium [Nexium] 40 mg PO DAILY tab-cap 07/09/15 08/11/20 levothyroxine 100 mcg PO DAILY tab-cap 07/09/15 08/11/20 paroxetine HCl [Paxil] 20 mg PO DAILY tab-cap 07/09/15 08/11/20 acetaminophen 500 mg tablet 1,000 mg PO TID PRN tab 05/25/19 08/11/20 sennosides [senna] 8.6 mg PO QHS 06/22/19 08/11/20 torsemide 10 mg PO DAILY 08/11/20 08/11/20 levofloxacin 750 mg PO DAILY #5 tab 08/12/20 oxycodone 5 mg PO Q6H PRN #7 tab 08/12/20 Previous Rx's Medication Instructions Recorded levofloxacin 750 mg PO DAILY #5 tab 08/12/20 oxycodone 5 mg PO Q6H PRN #7 tab 08/12/20 Allergies Allergy/AdvReac Type Severity Reaction Status Date / Time metronidazole [From Flagyl] Allergy Intermediate Rash Verified 08/11/20 17:17 nitrofurantoin Allergy Verified 08/11/20 17:17 [From Macrobid] estrogens, conjugated AdvReac Severe Verified 08/11/20 17:17 [From Premarin] ciprofloxacin [From Cipro] AdvReac Intermediate Muscle/Tendon Verified 08/11/20 17:17 aches ciprofloxacin HCl AdvReac Intermediate Muscle/Tendon Verified 08/11/20 17:17 [From Cipro] aches General Stated Complaint: Orthopedic ZULEYMA: 4 Review of Systems All systems reviewed & are unremarkable except as noted in HPI and below Constitutional Constitutional: Denies chills, Denies fever(s) and Denies weakness Cardiovascular Cardiovascular: Denies dyspnea Respiratory Respiratory: Denies cough and Denies dyspnea Gastrointestinal Gastrointestinal: Denies abdominal pain, Denies nausea and Denies vomiting Musculoskeletal Musculoskeletal: Denies joint swelling Neurologic Neurologic: Denies weakness Psychiatric Psychiatric: Denies depression [facility] Medical History Cholecystectomy planned Chronic constipation Depression Fibromyalgia GERD (gastroesophageal reflux disease) History of Alba's esophagus Hypothyroidism IBS (irritable bowel syndrome) Osteoarthritis Surgical History History of bladder surgery History of cholecystectomy History of hand surgery bladder sling Family History Other Cancer Social History Smoking/Tobacco Use Status: Former Tobacco Use Smoking risk assessment performed?: Yes Alcohol Intake: never Drug use: Never Substance use type: does not use Do you feel safe at home: Yes Do you feel safe in your relationship?: Yes Exam Const General: no acute distress Orientation: alert HENMT Head: normal to inspection Ears: external ears normal General nose exam: external nose normal Mouth: moist mucous membranes Eyes General: appearance normal, both eyes and all related structures Neck Neck: normal visual inspection Resp Effort & Inspection: normal respiratory effort and able to speak in complete sentences Cardio Rate: regular rate Skin General skin exam: no rashes or lesions noted Neuro General: patient alert and patient oriented x3 Extrem General: normal to inspection Psych Mental Status: mental status grossly normal Course Vital Signs Vital signs: Vital Signs Temperature 36.7 C 08/12/20 20:17 Pulse 80 08/12/20 20:17 Respiratory Rate 18 08/12/20 20:17 Blood Pressure 181/78 H 08/12/20 20:17 Pulse Oximetry 96 08/12/20 20:17 Temperature 36.7 C 08/12/20 20:17 Temperature Source Temporal Artery Scan 08/12/20 20:17 Pulse 80 08/12/20 20:17 Respiratory Rate 18 08/12/20 20:17 Respiratory Effort 08/12/20 20:21 Blood Pressure 181/78 H 08/12/20 20:17 Blood Pressure Position Supine 08/12/20 20:17 Pulse Oximetry 96 08/12/20 20:17 Oxygen Delivery Method Room Air 08/12/20 20:17 Oxygen Flow Rate 0 08/12/20 20:17 Pain Level 5 08/12/20 20:17
[2020-08-12] MEDS: oxyCODONE 5 MG TAB PO (20:36)
--- NOTE | 2020-08-12 21:01 | DI.VRAD_ITS ---
PROCEDURE INFORMATION: Exam: XR Chest, 2 Views Exam date and time: 08/12/2020 8:30 PM Age: 85 years old Clinical indication: Injury or trauma; Fall; Blunt trauma (contusions or hematomas); Injury details: Rib FX; Additional info: ? Pna TECHNIQUE: Imaging protocol: XR of the chest Views: 2 views. COMPARISON: 1. CT CHEST/ABD/PEL W 08/11/2020 7:06 PM 2. CR - XR RIBS RT PA CHEST 3V 08/11/2020 6:05:30 PM FINDINGS: Lungs: There is mild hyperinflation. Mild right basilar atelectasis or infiltrate. Pleural space: No pleural effusion or pneumothorax. Heart/Mediastinum: The heart and mediastinum are stable in appearance. Bones/joints: Previously described right rib fractures are not visualized. IMPRESSION: Mild right basilar atelectasis or infiltrate. Dictated and Authenticated by: Dante Whitmore MD. Ordering:MADELEINE Kay MD
[2020-08-12] MEDS: levoFLOXacin 500 MG, levoFLOXacin 250 MG 750 MG PO (21:21)
== END 2020-08-12 21:34 | disposition home or self-care (01) ==
PROVIDERS: Emergency Provider Emergency Medicine; PCP Internal Medicine
DX: S22.41XA Multiple fractures of ribs, right side, initial encounter for closed fracture (principal); W01.190A Fall on same level from slipping, tripping and stumbling with subsequent striking against furniture, initial encounter; R03.0 Elevated blood-pressure reading, without diagnosis of hypertension; J98.11 Atelectasis
CPT/HCPCS: 99283; 71046